=== PATIENT | female | born 2000 | race Caucasian/White ===

== ENCOUNTER 2023-02-17 07:57 | Emergency (ER) | payer BC, SELFPAY ==
[2023-02-17 08:03] VITALS: BP 118/98; PULSE 94; RESP 16; TEMP 36.8; O2SAT 98; BMI 20.8
[2023-02-17 08:06] VITALS: RESP 16
--- NOTE | 2023-02-17 08:20 | CT_ITS ---
[address] [address] Patient Name: HODAN NAVARRO MRN: [id number] date: 2000 Sex: F Assigned Patient Location: ER Current Patient Location: Accession/Order Number: [id number] Exam Date: 02/17/2023 09:05 Report Date: 02/17/2023 09:35 At the request of: ASHLEY ROCA Procedure: CT soft tissue neck w con EXAM: CT soft tissue neck w con; [id number] REASON FOR EXAM: throat pain, difficulty swallowing TECHNIQUE: Helical CT images of the neck obtained after the administration of IV contrast. Coronal and sagittal reconstructions were generated at the scanner. Dose reduction technique used: Automated exposure control and/or adjustment of the mA and/or kV according to patient size and/or use of iterative reconstruction technique. COMPARISON: None. FINDINGS: Visualized intracranial contents: Within normal limits. Orbits: Within normal limits. Sinuses: Small mucous retention cyst in the left maxillary sinus. No layering sinus fluid. Argon Tester space: Within normal limits. Buccal space: Within normal limits. Parotid space: No mass, stone, or acute inflammatory changes. Submandibular space: Within normal limits. Sublingual space: Within normal limits. Submental space: Within normal limits. Oral cavity: Within normal limits. Pharynx/Pharyngeal mucosal space: Within normal limits. Parapharyngeal space: Within normal limits. Retropharyngeal space: No abnormal thickening. Carotid space: Within normal limits. Perivertebral space: Within normal limits. Visceral space: -No thyroid nodules. Lymph nodes: No lymphadenopathy by size criteria. Superficial soft tissues of the neck: Within normal limits. Lung apices: Clear. Osseous: No acute osseous abnormality. No suspicious osseous lesion. IMPRESSION: Negative exam. No structural etiology for throat pain and difficulty swallowing demonstrated. Electronically authenticated by: ARLENE WOOD Date: 02/17/2023 09:35
--- NOTE | 2023-02-17 08:27 | ED.GENADUL1 ---
HPI - General Adult General Chief complaint: Upper Respiratory Infection Stated complaint: throat pain Time Seen by Provider: 02/17/23 08:07 Source: patient and family Mode of arrival: walk-in Limitations: no limitations History of Present Illness HPI narrative: patient developed throat pain 4 days ago. The pain has steadily worsened since then and has moved into the roof of her mouth and the top of the throat. No neck pain or lymph node swelling. No fever or chills. No GI or symptoms. She went to the urgent care yesterday and had a negative strep test - culture is pending. She does not know of any potential ill exposures but goes to school in [place]. She now presents crying and stating that it hurts to talk and swallow. She is able to control her secretions. Related Data Allergies Allergy/AdvReac Type Severity Reaction Status Date / Time No Known Drug Allergies Allergy Verified 02/17/23 08:02 [facility] Social History Smoking status: Never smoker Exam Narrative Exam Narrative: Nurses notes and vital signs reviewed and patient is not hypoxic. afebrile General: Well-appearing and in no apparent distress. Skin: Warm, dry, no pallor noted. No rash. Head: Normocephalic, atraumatic. Neck: Supple, non-tender. no cervical lymphadenopathy. No meningismus. Eye: Pupils are equal, round and EOMI. No scleral icterus. Ears, Nose, Mouth, and Throat: TMs are clear, no nasal mucosal hypertrophy. Oral mucosa is moist, uvula is mid-line, moderate posterior oropharynx erythema without ulcers or exudate. No oral or intraoral lesions. she is able to control her secretions. no trismus or drooling Cardiovascular: Regular Rate and Rhythm without murmur, gallop or rub. Respiratory: No accessory muscle use or respiratory distress. Lungs are clear to auscultation, no wheezing, rales or rhonchi GI: Abdomen is soft, non-distended. Normal bowel sounds. No splenomegaly. No tenderness to palpation. No rebound, guarding, or rigidity noted. Neurological: A&O x4. No cranial nerve dysfunction observed. No truncal ataxia. Moves all extremities. Sensation intact. Psychiatric: Cooperative and interactive. Normal mood and affect. Constitutional Vital Signs - 24 hr 02/17/23 08:03 02/17/23 08:06 Temperature 98.2 F Pulse Rate [Monitor] 94 H Respiratory Rate 16 16 Blood Pressure [Left Arm] 118/98 H Pulse Oximetry 98 Oxygen Delivery Method Room Air Course Vital Signs Vital signs: Vital Signs Temperature 98.2 F 02/17/23 08:03 Pulse Rate 94 H 02/17/23 08:03 Respiratory Rate 16 02/17/23 08:03 Blood Pressure 118/98 H 02/17/23 08:03 Pulse Oximetry 98 02/17/23 08:03 Oxygen Delivery Method Room Air 02/17/23 08:03 Temperature 98.2 F 02/17/23 08:03 Pulse Rate 94 H 02/17/23 08:03 Respiratory Rate 16 02/17/23 08:06 Blood Pressure 118/98 H 02/17/23 08:03 Pulse Oximetry 98 02/17/23 08:03 Oxygen Delivery Method Room Air 02/17/23 08:03 Medical Decision Making MDM Narrative Medical decision making narrative: swabs obtained for Covid and strep. Peripheral IV established and blood drawn for testing, including lactate, ESR and CRP. CT soft tissue with IV contrast ordered. She was given IV Toradol and oral magic mouthwash for the pain. Patient's workup was negative including all lab tests, swabs and CT scan. Patient informed of results, given reassurance and discharged home. She will continue to take the magic mouthwash, take tylenol and motrin for pain. ED return if she worsens. Lab Data Lab results reviewed: Yes I reviewed the patient's lab results Labs: Lab Results 02/17/23 02/17/23 Range/Units 08:26 08:30 WBC 6.6 (4.0-11.0) 10^3/uL RBC 5.08 (4.20-5.40) 10^6/uL Hgb 13.8 (12.0-16.0) g/dL Hct 42.5 (36.0-48.0) % MCV 83.7 (81.0-99.0) fL MCH 27.2 (26.7-34.0) pg MCHC 32.5 (29.9-35.2) g/dL RDW 13.8 (11.0-15.0) % Plt Count 303 (150-450) 10^3/uL MPV 9.7 (9.5-13.5) fL Neut % (Auto) 60.5 (43.0-75.0) % Lymph % (Auto) 29.8 (20.5-60.0) % [place] % (Auto) 6.0 (1.7-12.0) % Eos % (Auto) 2.7 (0.9-7.0) % Baso % (Auto) 0.8 (0.2-2.0) % Neut # (Auto) 4.0 (1.4-6.5) 10^3/uL Lymph # (Auto) 2.0 (1.2-3.8) 10^3/uL [place] # (Auto) 0.4 (0.3-0.8) 10^3/uL Eos # (Auto) 0.2 (0.0-0.7) 10^3/uL Baso # (Auto) 0.1 (0.0-0.1) 10^3/uL Abs Immat Gran (auto) 0.01 (0.00-0.03) 10^3/uL Imm/Tot Granulo (auto) 0.2 (0.0-0.5) % ESR 12 (<=20) mm/hr Sodium 138 (136-145) mmol/L Potassium 3.2 L (3.5-5.1) mmol/L Chloride 101 (98-107) mmol/L Carbon Dioxide 28.1 (21.0-32.0) mmol/L Anion Gap 12.1 BUN 6.0 L (7.0-18.0) mg/dL Creatinine 0.62 (0.55-1.02) mg/dL Est GFR ( Amer) >60 (>=60) Est GFR (Non-Af Amer) >60 (>=60) BUN/Creatinine Ratio 9.7 Glucose 92 (74-106) mg/dL Lactate 0.8 (0.4-2.0) mmol/L Calcium 8.9 (8.5-10.1) mg/dL C-Reactive Protein <0.2 (<=1.0) mg/dL SARS-CoV-2 (PCR) Negative (NEGATIVE) Monoscreen Negative (NEGATIVE) Streptococcus Screen Negative Imaging Data ct soft tissue neck: Radiologist's impression: Patient Name: HODAN ANVARRO MRN: [facility]:[id number] date: 2000 Sex: F Assigned Patient Location: ER Current Patient Location: ER Accession/Order Number: [id number] Exam Date: 02/17/2023 09:05 Report Date: 02/17/2023 09:35 At the request of: ASHLEY ROCA Procedure: CT soft tissue neck w con EXAM: CT soft tissue neck w con; [id number] REASON FOR EXAM: throat pain, difficulty swallowing TECHNIQUE: Helical CT images of the neck obtained after the administration of IV contrast. Coronal and sagittal reconstructions were generated at the scanner. Dose reduction technique used: Automated exposure control and/or adjustment of the mA and/or kV according to patient size and/or use of iterative reconstruction technique. COMPARISON: None. FINDINGS: Visualized intracranial contents: Within normal limits. Orbits: Within normal limits. Sinuses: Small mucous retention cyst in the left maxillary sinus. No layering sinus fluid. Executive Sales Manager space: Within normal limits. Buccal space: Within normal limits. Parotid space: No mass, stone, or acute inflammatory changes. Submandibular space: Within normal limits. Sublingual space: Within normal limits. Submental space: Within normal limits. Oral cavity: Within normal limits. Pharynx/Pharyngeal mucosal space: Within normal limits. Parapharyngeal space: Within normal limits. Retropharyngeal space: No abnormal thickening. Carotid space: Within normal limits. Perivertebral space: Within normal limits. Visceral space: -No thyroid nodules. Lymph nodes: No lymphadenopathy by size criteria. Superficial soft tissues of the neck: Within normal limits. Lung apices: Clear. Osseous: No acute osseous abnormality. No suspicious osseous lesion. IMPRESSION: Negative exam. No structural etiology for throat pain and difficulty swallowing demonstrated. Electronically authenticated by: ARLENE WOOD Date: 02/17/2023 09:35 Discharge Plan Discharge Chief Complaint: Upper Respiratory Infection Clinical Impression: Pharyngitis Patient Disposition: Home, Self-Care Time of Disposition Decision: 10:03 Instructions: Pharyngitis (ED) Stand Alone Forms: Portal Instructions Referrals: Ilia Amato DO [Primary Care Provider] - 1 week
[2023-02-17 08:44] LABS: Basophils Absolute Auto 0.1 10^3/uL (0.0-0.1); Basophils Percent Auto 0.8 % (0.2-2.0); Eosinophils Absolute Auto 0.2 10^3/uL (0.0-0.7); Eosinophils Percent Auto 2.7 % (0.9-7.0); Hematocrit 42.5 % (36.0-48.0); Hemoglobin 13.8 g/dL (12.0-16.0); Immature Granulocytes Abs Auto 0.01 10^3/uL (0.00-0.03); Immature Granulocytes Pct Auto 0.2 % (0.0-0.5); Lymphocytes Percent Auto 29.8 % (20.5-60.0); Mean Corpuscular HGB Conc 32.5 g/dL (29.9-35.2); Mean Corpuscular Hemoglobin 27.2 pg (26.7-34.0); Mean Corpuscular Volume 83.7 fL (81.0-99.0); Mean Platelet Volume 9.7 fL (9.5-13.5); Monocytes Absolute Auto 0.4 10^3/uL (0.3-0.8); Neutrophils Percent Auto 60.5 % (43.0-75.0); Platelet Count 303 10^3/uL (150-450); Red Blood Count 5.08 10^6/uL (4.20-5.40); Red Cell Distribution Width 13.8 % (11.0-15.0); White Blood Count 6.6 10^3/uL (4.0-11.0)
[2023-02-17] MEDS: KETOROLAC TROMETHAMINE 30 MG/ML VIAL IVP (08:46)
[2023-02-17] MEDS: lidocaine HCL 15 ML, MAG HYDROX/ALUMINUM HYD/SIMETH 30 ML, diphenhydrAMINE HCL 30 MG PO (08:46)
[2023-02-17 08:50] LABS: C Reactive Protein <0.2 mg/dL (<=1.0)
[2023-02-17 08:50] LABS: Internal Control Within Normal Limits; Strep A Antigen Screen Negative
[2023-02-17] MEDS: lidocaine HCL 15 ML, MAG HYDROX/ALUMINUM HYD/SIMETH 30 ML, diphenhydrAMINE HCL 75 MG PO (08:54)
[2023-02-17 08:59] LABS: Lactate/Lactic Acid 0.8 mmol/L (0.4-2.0)
[2023-02-17 09:01] LABS: Mono Screen NEGATIVE (NEGATIVE)
[2023-02-17 09:02] LABS: Anion Gap 12.1; BUN Creatinine Ratio 9.7; Calcium 8.9 mg/dL (8.5-10.1); Carbon Dioxide 28.1 mmol/L (21.0-32.0); Chloride 101 mmol/L (98-107); Estimated GFR (African America >60 (>=60); Estimated GFR (Non-African Ame >60 (>=60); Glucose 92 mg/dL (74-106); Potassium 3.2 mmol/L (3.5-5.1); Sodium 138 mmol/L (136-145)
[2023-02-17 09:55] LABS: Erythrocyte Sedimentation Rate 12 mm/hr (<=20)
[2023-02-17 09:59] LABS: SARS-CoV-2 Ag NEGATIVE (NEGATIVE)
[2023-02-17 14:26] LABS: SARS-CoV-2 NAA NOT DETECTED (NOT DETECTE)
== END 2023-02-17 10:21 | disposition home or self-care (01) ==
PROVIDERS: Emergency Provider Emergency Medicine; PCP Internal Medicine
DX: J02.9 Acute pharyngitis, unspecified (principal)
CPT/HCPCS: 36415; 70491; 80048; 83605; 85025; 85652; 86140; 86308; 87070; 87635; 87880; 96374; 99285; Q9967

== ENCOUNTER 2023-02-19 08:00 | Emergency (ER) | payer BC, SELFPAY ==
[2023-02-19 08:03] VITALS: BP 142/90; PULSE 92; RESP 16; TEMP 36.7; O2SAT 96; BMI 21.5
--- NOTE | 2023-02-19 08:26 | ED.GENADUL1 ---
HPI - General Adult General Chief complaint: Upper Respiratory Infection Stated complaint: SORE THROAT Time Seen by Provider: 02/19/23 08:02 Source: patient Mode of arrival: walk-in Limitations: no limitations History of Present Illness HPI narrative: 22-year-old female presents for sore throat. She's had it for over a week. She was seen at an urgent care and had negative strep testing. She was seen in this emergency department two days ago and had a negative CT. She continues to have bilateral throat pain. No fever. No cough or shortness of breath or chest pain. The pain has been severe and and she's been tearful. Related Data Previous Rx's Medication Instructions Recorded acetaminophen 120 mg-codeine 12 10 ml PO Q6H PRN pain #400 mL 02/19/23 mg/5 mL (5 mL) oral solution valacyclovir 1 gram tablet 1,000 mg PO BID 10 days #20 tabs 02/19/23 (Valtrex) Allergies Allergy/AdvReac Type Severity Reaction Status Date / Time No Known Drug Allergies Allergy Verified 02/17/23 08:02 Review of Systems ROS Narrative A ten point review of systems is negative except as noted above. PFSH PFS Social History Smoking status: Never smoker Exam Narrative Exam Narrative: Nurses note and vital signs reviewed and patient is not hypoxic. General: The patient appears uncomfortable and in no apparent distress. Skin: Warm, dry, no pallor noted. There is no rash noted. Head: Normocephalic, atraumatic Eye: Normal conjunctiva, no drainage Ears, Nose, Mouth, and Throat: oral mucosa is moist. Nares patent. Mouth without vesicles. Ear canals patent. Tm's without Erythema. there is a U-shaped area of erythema at the junction of the hard and soft palates. There are no blisters present. No swelling below her tongue. No buccal mucosal lesions. uvula is midline. Cardiovascular: Regular Rate and Rhythm Respiratory: Patient is in no distress, no accessory muscle use, lungs are clear to auscultation, no wheezing, rales or rhonchi Back: non-tender, no CVA tenderness bilaterally to percussion. GI: soft and nontender Musculoskeletal: The patient has no evidence of calf tenderness, no pitting edema, symmetrical pulses noted bilaterally Neurological: A&O x4, normal speech Psychiatric: Cooperative Constitutional Vital Signs, click to edit/add: Last Vital Signs Temp 98.0 F 02/19/23 08:03 Pulse 92 H 02/19/23 08:03 Resp 16 02/19/23 08:03 BP 142/90 H 02/19/23 08:03 Pulse Ox 96 02/19/23 08:03 O2 Del Method Room Air 02/19/23 08:03 Course Vital Signs Vital signs: Vital Signs Temperature 98.0 F 02/19/23 08:03 Pulse Rate 92 H 02/19/23 08:03 Respiratory Rate 16 02/19/23 08:03 Blood Pressure 142/90 H 02/19/23 08:03 Pulse Oximetry 96 02/19/23 08:03 Oxygen Delivery Method Room Air 02/19/23 08:03 Temperature 98.0 F 02/19/23 08:03 Pulse Rate 92 H 02/19/23 08:03 Respiratory Rate 16 02/19/23 08:03 Blood Pressure 142/90 H 02/19/23 08:03 Pulse Oximetry 96 02/19/23 08:03 Oxygen Delivery Method Room Air 02/19/23 08:03 Medical Decision Making MDM Narrative Medical decision making narrative: Blood work is unchanged. Viral culture is ordered as well as a coxsackie antibody test. She'll be placed on Valtrex and Tylenol with Codeine elixir. Findings are discussed with the patient and her mother. she had testing that was negative for strep and mono. I have no clinical suspicion of abscess. Differential Diagnosis Differential Diagnosis: viral pharyngitis, strep throat, mono Lab Data Lab results reviewed: Yes I reviewed the patient's lab results Labs: Lab Results 02/19/23 Range/Units 08:45 WBC 5.3 (4.0-11.0) 10^3/uL RBC 4.73 (4.20-5.40) 10^6/uL Hgb 12.9 (12.0-16.0) g/dL Hct 40.0 (36.0-48.0) % MCV 84.6 (81.0-99.0) fL MCH 27.3 (26.7-34.0) pg MCHC 32.3 (29.9-35.2) g/dL RDW 13.8 (11.0-15.0) % Plt Count 278 (150-450) 10^3/uL MPV 9.7 (9.5-13.5) fL Neut % (Auto) 59.1 (43.0-75.0) % Lymph % (Auto) 28.3 (20.5-60.0) % [place] % (Auto) 7.9 (1.7-12.0) % Eos % (Auto) 4.1 (0.9-7.0) % Baso % (Auto) 0.6 (0.2-2.0) % Neut # (Auto) 3.2 (1.4-6.5) 10^3/uL Lymph # (Auto) 1.5 (1.2-3.8) 10^3/uL [place] # (Auto) 0.4 (0.3-0.8) 10^3/uL Eos # (Auto) 0.2 (0.0-0.7) 10^3/uL Baso # (Auto) 0.0 (0.0-0.1) 10^3/uL Abs Immat Gran (auto) 0.00 (0.00-0.03) 10^3/uL Imm/Tot Granulo (auto) 0.0 (0.0-0.5) % Sodium 139 (136-145) mmol/L Potassium 3.4 L (3.5-5.1) mmol/L Chloride 105 (98-107) mmol/L Carbon Dioxide 28.2 (21.0-32.0) mmol/L Anion Gap 9.2 BUN 4.0 L (7.0-18.0) mg/dL Creatinine 0.71 (0.55-1.02) mg/dL Est GFR ( Amer) >60 (>=60) Est GFR (Non-Af Amer) >60 (>=60) BUN/Creatinine Ratio 5.6 Glucose 119 H (74-106) mg/dL Calcium 8.3 L (8.5-10.1) mg/dL Discharge Plan Discharge Chief Complaint: Upper Respiratory Infection Clinical Impression: Acute viral pharyngitis Patient Disposition: Home, Self-Care Time of Disposition Decision: 09:38 Condition: Good Mode of Transportation: Private Vehicle Prescriptions / Home Meds: New valacyclovir [Valtrex] 1 gram tablet 1,000 mg PO BID 10 Days Qty: 20 0RF acetaminophen-codeine 120 mg-12 mg /5 mL (5 mL) solution 10 ml PO Q6H PRN (Reason: pain) Qty: 400 0RF Instructions: Pharyngitis (ED) Stand Alone Forms: Portal Instructions Referrals: Ilia Amato DO [Primary Care Provider] - 1 week
[2023-02-19] MEDS: METHYLPREDNISOLONE SOD SUCC PF 125 MG/2 ML VIAL IVP (08:47)
[2023-02-19] MEDS: 0.9 % SODIUM CHLORIDE 1,000 ML 1000 ML IV (08:47)
[2023-02-19] MEDS: KETOROLAC TROMETHAMINE 30 MG/ML VIAL IVP (08:47)
[2023-02-19 09:10] LABS: Basophils Percent Auto 0.6 % (0.2-2.0); Eosinophils Absolute Auto 0.2 10^3/uL (0.0-0.7); Eosinophils Percent Auto 4.1 % (0.9-7.0); Hemoglobin 12.9 g/dL (12.0-16.0); Lymphocytes Absolute Auto 1.5 10^3/uL (1.2-3.8); Lymphocytes Percent Auto 28.3 % (20.5-60.0); Mean Corpuscular HGB Conc 32.3 g/dL (29.9-35.2); Mean Corpuscular Hemoglobin 27.3 pg (26.7-34.0); Mean Corpuscular Volume 84.6 fL (81.0-99.0); Mean Platelet Volume 9.7 fL (9.5-13.5); Monocytes Absolute Auto 0.4 10^3/uL (0.3-0.8); Monocytes Percent Auto 7.9 % (1.7-12.0); Neutrophils Absolute Auto 3.2 10^3/uL (1.4-6.5); Neutrophils Percent Auto 59.1 % (43.0-75.0); Platelet Count 278 10^3/uL (150-450); Red Blood Count 4.73 10^6/uL (4.20-5.40); Red Cell Distribution Width 13.8 % (11.0-15.0); White Blood Count 5.3 10^3/uL (4.0-11.0)
[2023-02-19 09:15] LABS: Anion Gap 9.2; BUN Creatinine Ratio 5.6; Calcium 8.3 mg/dL (8.5-10.1); Carbon Dioxide 28.2 mmol/L (21.0-32.0); Chloride 105 mmol/L (98-107); Estimated GFR (African America >60 (>=60); Estimated GFR (Non-African Ame >60 (>=60); Glucose 119 mg/dL (74-106); Potassium 3.4 mmol/L (3.5-5.1); Sodium 139 mmol/L (136-145)
[2023-02-22 22:07] LABS: Coxsackie B-1 Ab 1:32 (Neg:<1:8); Coxsackie B-2 Ab 1:32 (Neg:<1:8); Coxsackie B-3 Ab 1:16 (Neg:<1:8); Coxsackie B-5 Ab 1:32 (Neg:<1:8); Coxsackie B-6 Ab 1:32 (Neg:<1:8)
== END 2023-02-19 09:54 | disposition home or self-care (01) ==
PROVIDERS: Emergency Provider Emergency Medicine; PCP Internal Medicine
DX: J02.9 Acute pharyngitis, unspecified (principal)
CPT/HCPCS: 36415; 80048; 85025; 86658; 87255; 96374; 96375; 99284; J2930

== ENCOUNTER 2024-03-18 07:29 | Outpatient (OUT) | payer BC, SELFPAY ==
--- NOTE | 2024-03-18 | XR_ITS ---
[address] [address] Patient Name: HODAN NAVARRO MRN: [id number] date: 2000 Sex: F Assigned Patient Location: Current Patient Location: Accession/Order Number: [id number] Exam Date: 03/18/2024 07:35 Report Date: 03/19/2024 10:33 At the request of: DELLA TOM Procedure: XR knee LT 4V PROCEDURE: XR knee LT 4V HISTORY: LEFT KNEE PAIN COMPARISON: None. FINDINGS: BONES:No fracture, acute abnormality, or significant arthropathy. SOFT TISSUES:No visible soft tissue swelling. EFFUSION:Small joint effusion. OTHER: Negative. XR/XR knee LT 4V IMPRESSION: 1. Small joint effusion. 2. No acute bone abnormality. Electronically authenticated by: DELLA WILLIAM Date: 03/19/2024 10:33
== END 2024-03-18 07:30 | disposition home or self-care (01) ==
LOC: EC 07:29
PROVIDERS: PCP Internal Medicine; Visit Provider Orthopaedic Surgery
DX: M25.562 Pain in left knee (principal); M25.462 Effusion, left knee
CPT/HCPCS: 73564

== ENCOUNTER 2024-03-26 13:16 | Outpatient (OUT) | payer BC, SELFPAY ==
--- NOTE | 2024-03-26 13:18 | MR_ITS ---
[place] [id number] Patient Name: HODAN NAVARRO MRN: [id number] date: 2000 Sex: F Assigned Patient Location: MRI Current Patient Location: MRI Accession/Order Number: [id number] Exam Date: 03/26/2024 13:25 Report Date: 03/28/2024 11:54 At the request of: DELLA TOM Procedure: MR knee LT wo con EXAMINATION: MR knee LT wo con HISTORY: Acute Pain Of Left Knee M25.562 COMPARISON: No relevant comparison available. TECHNIQUE: A complete multi-planar MRI was performed. FINDINGS: MEDIAL COMPARTMENT MEDIAL MENISCUS: Suspect superior surface tear involving posterior junction and horn. CARTILAGE: Small focal defects suspected along lateral weightbearing surface of the medial condyle. BONES: Prominent subchondral edema within medial condyle adjacent the weightbearing surface. MCL AND MEDIAL CAPSULE: Normal medial collateral ligament and medial capsule. LATERAL COMPARTMENT LATERAL MENISCUS: No visible tear or significant degeneration. CARTILAGE: No visible defect. BONES: 12 mm area of slight irregularity and abnormal signal involving the subcortical trabecula adjacent the weightbearing surface of the lateral condyle; mild impaction fracture versus developing osteochondral defect. Prominent edema surrounding this area within the lateral condyle extending to the intercondylar notch. Edema within the marrow cavity adjacent the posterior lateral tibial plateau and adjacent the tibia-fibula joint. LCL/POSTEROLAT COMPLEX: Normal lateral collateral ligament, fascicles, lateral capsule and ligaments. ANTERIOR COMPARTMENT PATELLA: No marrow pathology, fracture, or significant arthropathy. CARTILAGE: No visible defect. TENDONS: Normal. EFFUSION: None. No synovitis or loose bodies. ACL: Disrupted. PCL: Normal appearing ligament. MENISCOFEMORAL: Normal meniscofemoral ligaments. OTHER: Negative. MR/MR knee LT wo con IMPRESSION: 1. Disruption of the anterior cruciate ligament. 2. Bone bruising involving the lateral femoral condyle and lateral tibial plateau. Possible developing osteochondral defect within lateral femoral condyle versus area of slightly greater trabecular fractures. 3. Small cartilage defect along weightbearing surface of medial femoral condyle with underlying subchondral edema. 4. Intrasubstance degeneration versus medial meniscus superior surface tear involving the posterior horn and junction. Electronically authenticated by: DELLA WILLIAM Date: 03/28/2024 11:54
== END 2024-03-26 13:17 | disposition home or self-care (01) ==
LOC: MRI 13:16
PROVIDERS: PCP Internal Medicine; Visit Provider Orthopaedic Surgery
DX: M25.562 Pain in left knee (principal); S83.512A Sprain of anterior cruciate ligament of left knee, initial encounter
CPT/HCPCS: 73721

== ENCOUNTER 2024-04-19 08:00 | Outpatient (OUT) | payer BC, SELFPAY ==
--- OUTSIDE RECORDS SUMMARY | 2024-04-19 10:16 | XMS_ITS | CCD ---
Author Organization [facility] ion [facility] Care Team Providers Care Certified Green Building Engineer Name Role Phone JULIANO, DR YOGI Newman Attending Unavailable JULIANO, DR YOGI Newman Consulting Unavailable JULIANO, DR YOGI Newman Admitting Unavailable ALMANZA, DR ROSANA Huertas Primary Care Unavailable Unavailable Primary Care Provider UnavailEDER Dotson Attending Unavailable PROVIDER, UNKNOWN Admitting Unavailable PROVIDER, UNKNOWN Admitting Unavailable PROVIDER, UNKNOWN Attending Unavailable Medications Completed/Discontinued Medications Medication Drug Class(es) Dates Sig (Normalized) Sig (Original) calcium chloride 0.0014 meq/ml / potassium chloride 0.004 meq/ml / sodium chloride 0.103 meq/ml / sodium lactate 0.028 meq/ml injectable solution (1 source) Start: 04-17-2024 End: 04-17-2024 take 1 dose intravenously every hour 1,000 mL, at 9,999 mL/hr, Intravenous, FLUID BOLUS, 1 dose, On Mon04/17/24 at 0126 50 ml magnesium sulfate 40 mg/ml injection (1 source) Start: 04-17-2024 End: 04-17-2024 2 g (2,000 mg), Intravenous, ONCE, 1 dose, On Mon04/17/24 at 0241 Problems Problem Classification Problem Date Documented Da te Episodic/Chronic Conditions associated with dizziness or vertigo (1 source) Lightheadedness; Translations: [Dizziness and giddiness] 04-17-2024 Episodic Syncope (1 source) Near syncope; Translations: [Syncope and collapse] 04-17-2024 Episodic Results Test Name Value Interpretation Reference Range Facility BASIC METABOLIC PANELon Anion gap [Moles/Vol] 14 mmol/L Normal 10-20 [facility] Comment on above: Performed By: #### C H8, MG #### [facility] [address] [place] [address], [id number] Calcium [Mass/Vol] 9.4 mg/dL Normal 8.6-10.3 [facility] Comment on above: Performed By: #### C H8, MG #### [facility] [address], [place], Chloride [Moles/Vol] 102 mmol/L Normal 98-107 [facility] Comment on above: Performed By: #### C H8, MG #### [facility] [address], [place], CO2 [Moles/Vol] 29 mmol/L Normal 21-31 [facility] Comment on above: Performed By: #### C H8, MG #### [facility] [address], [place], Creatinine [Mass/Vol] 0.78 mg/dL Normal 0.60-1.20 [facility] Comment on above: Performed By: #### C H8, MG #### [facility] [address], [place], ESTIMATED GFR (CKD-EPI) 110 mL/min/1.73sqm Normal >=60 [facility] Comment on above: Result Comment: 2020 CKD EPI Equation using Creatinine without Race Comment: Estimated glomerular filtration rate (eGFR) is calculated without a race coefficient. Values should be interpreted in the context of the patient's full clinical presentation. Reference: 1. Alberto C, Lani M, Montserrat DAVIES, et al.. A Unifying Approach for GFR Estimation: Recommendations of the NKF-ASN Task Force on Reassessing the Inclusion of Race in Diagnosing Kidney Disease. [place] Journal of Kidney Diseases 2021;79(2):268-88.e1. 2. N Engl J Med 2020 Vol. 385 Issue 19 Pages 8520-4975 Performed By: #### C H8, MG #### [facility] [address], [place], Glucose [Mass/Vol] 91 mg/dL Normal 74-109 [facility] Comment on above: Performed By: #### C H8, MG #### [facility] [address], [place], Potassium [Moles/Vol] 3.5 mmol/L Normal 3.5-5.0 [facility] Comment on above: Performed By: #### C H8, MG #### [facility] [address], [place], Sodium [Moles/Vol] 141 mmol/L Normal 136-145 [facility] Comment on above: Performed By: #### C H8, MG #### [facility] [address], [place], Urea nitrogen [Mass/Vol] 8 mg/dL Normal 7-25 [facility] Comment on above: Performed By: #### C H8, MG #### [facility] [address], [place], Basic metabolic 2000 panelon 04-17-2024 Anion gap [Moles/Vol] 14 mmol/L 10 - 20 [facility] Calcium [Mass/Vol] 9.4 mg/dL 8.6 - 10. 3 mg/dL [facility] Chloride [Moles/Vol] 102 mmol/L 98 - 10 7 mmol/L [facility] CO2 [Moles/Vol] 29 mmol/L 21 - 31 mmol/L [facility] Creatinine [Mass/Vol] 0.78 mg/dL 0.60 - 1.20 mg/dL [facility] GFR/1.73 sq M.predicted CKD-EPI (S/P/Bld) [Vol rate/Area] 110 - PINF [facility] Comment on above: 2020 CKD EPI Equatio n using Creatinine without Race Comment: Estimated glomerular filtration rate (eGFR) is calculated without a race coefficient. Values should be interpreted in the context of the patient's full clinical presentation. Reference: 1. Alberto C, Lani M, Montserrat DAVIES, et al.. A Unifying Approach for GFR Estimation: Recommendations of the NKF-ASN Task Force on Reassessing the Inclusion of Race in Diagnosing Kidney Disease. [place] Journal of Kidney Diseases 202;79(2):268-88.e1. 2. N Engl J Med 2020 Vol. 385 Issue 19 Pages 5981-8589 Glucose [Mass/Vol] 91 mg/dL 74 - 109 mg/dL [facility] Interpretation and review of laboratory results Normal [facility] Potassium [Moles/Vol] 3.5 mmol/L 3.5 - 5.0 mmol/L [facility] Sodium [Moles/Vol] 141 mmol/L 136 - 145 mmol/L [facility] Urea nitrogen [Mass/Vol] 8 mg/dL 7 - 25 mg/dL [facility] CBC WITH DIFFERENTIALon Basophils (Bld) [#/Vol] 0.08 10*3/uL 0.00 - 0.20 K/uL [facility] Basophils/100 WBC (Bld) 1.3 % NINF - 1.9 % [facility] Eosinophils (Bld) [#/Vol] 0.10 10*3/uL 0.00 - 0.70 K/uL [facility] Eosinophils/100 WBC (Bld) 1.5 % 0.1 - 4.0 % [facility] Erythrocyte distribution width (RBC) [Ratio] 16.6 % High 11.5 - 14.5 % [facility] Hematocrit (Bld) [Volume fraction] 39.6 % 36.0 - 46.0 % [facility] Hemoglobin (Bld) [Mass/Vol] 12.9 g/dL 12.0 - 15.0 g/dL [facility] Interpretation and review of laboratory results Abnormal [facility] Lymphocytes (Bld) [#/Vol] 1.52 10*3/uL 1.00 - 4.80 K/uL [facility] Lymphocytes/100 WBC (Bld) 24.3 % 24.0 - 44.0 % [facility] MCH (RBC) [Entitic mass] 27.5 pg 26.0 - 34.0 pg [facility] MCHC (RBC) [Mass/Vol] 32.7 g/dL 32.0 - 35.9 g/dL [facility] MCV (RBC) [Entitic vol] 84 fL 80 - 100 fL [facility] Monocyte distribution width Auto (Bld) [Entitic vol] 16 NINF - 20 [facility] Monocytes (Bld) [#/Vol] 0.56 10*3/uL 0.20 - 1.00 K/uL [facility] Monocytes/100 WBC (Bld) 9.0 % 2.0 - 11.0 % [facility] Neutrophils (Bld) [#/Vol] 3.99 10*3/uL 1.50 - 8.00 K/uL [facility] Neutrophils/100 WBC (Bld) 64.0 % 31.0 - 76.0 % [facility] Platelet mean volume (Bld) [Entitic vol] 7.8 fL 7.5 - 11.2 fL [facility] Platelets (Bld) [#/Vol] 275 10*3/uL 150 - 400 K/uL [facility] RBC (Bld) [#/Vol] 4.71 10*6/uL [facility] WBC (Bld) [#/Vol] 6.2 10*3/uL 4.5 - 11.5 K/uL [facility] Basophils (Bld) [#/Vol] 0.08 10*3/uL Normal 0.00-0.20 [facility] Comment on above: Performed By: #### C BCDSAT #### [facility] [address] [place] [address], Basophils/100 WBC (Bld) 1.3 % Normal <=1.9 [facility] Comment on above: Performed By: #### C BCDSAT #### [facility] [address] [place] [address], Eosinophils (Bld) [#/Vol] 0.10 10*3/uL Normal 0.00-0.70 [facility] Comment on above: Performed By: #### C BCDSAT #### [facility] [address] [place] [address], Eosinophils/100 WBC (Bld) 1.5 % Normal 0.1-4.0 [facility] Comment on above: Performed By: #### C BCDSAT #### [facility] [address] [place] [address], Erythrocyte distribution width (RBC) [Ratio] 16.6 % High 11.5-14.5 [facility] Comment on above: Performed By: #### C BCDSAT #### [facility] [address] [place] [address], Hematocrit (Bld) [Volume fraction] 39.6 % Normal 36.0-46.[address] [facility] Comment on above: Performed By: #### C BCDSAT #### [facility] [address] [place] [address], Hemoglobin (Bld) [Mass/Vol] 12.9 g/dL Normal 12.0-15.0 [facility] Comment on above: Performed By: #### C LUIS EDUARDOAT #### [facility] [address] [place] [address], Lymphocytes (Bld) [#/Vol] 1.52 10*3/uL Normal 1.00-4.80 [facility] Comment on above: Performed By: #### C LUIS EDUARDOAT #### [facility] [address] [place] [address], Lymphocytes/100 WBC (Bld) 24.3 % Normal 24.0-44.0 [facility] Comment on above: Performed By: #### Kailyn HOFFAT #### [facility] [address] [place] [address], MCH (RBC) [Entitic mass] 27.5 pg Normal 26.0-34.0 [facility] Comment on above: Performed By: #### Kailyn HOFFAT #### [facility] [address] [place] [address], MCHC (RBC) [Mass/Vol] 32.7 g/dL Normal 32.0-35.9 [facility] Comment on above: Performed By: #### Kailyn HOFFAT #### [facility] [address] [place] [address], MCV (RBC) [Entitic vol] 84 fL Normal 80-100 [facility] Comment on above: Performed By: #### Kailyn HOFFAT #### [facility] [address] [place] [address], MONOCYTE DISTRIBUTION WIDTH 16 Normal <=20 [facility] Comment on above: Performed By: #### Kailyn HOFFAT #### [facility] [address] [place] [address], Monocytes (Bld) [#/Vol] 0.56 10*3/uL Normal 0.20-1.00 [facility] Comment on above: Performed By: #### Kailyn HOFFAT #### [facility] [address] [place] [address], Monocytes/100 WBC (Bld) 9.0 % Normal 2.0-11.0 [facility] Comment on above: Performed By: #### C TIMBODSAT #### [facility] [address], [place], Neutrophils (Bld) [#/Vol] 3.99 10*3/uL Normal 1.50-8.00 [facility] Comment on above: Performed By: #### C LUIS EDUARDOAT #### [facility] [address], [place], Neutrophils/100 WBC (Bld) 64.0 % Normal 31.0-76.0 [facility] Comment on above: Performed By: #### C LUIS EDUARDOAT #### [facility] [address] [place] [address], Platelet mean volume (Bld) [Entitic vol] 7.8 fL Normal 7.5-11.[address] [facility] Comment on above: Performed By: #### C LUIS EDUARDOAT #### [facility] [address], [place], Platelets (Bld) [#/Vol] 275 10*3/uL Normal 150-400 [facility] Comment on above: Performed By: #### C LUIS EDUARDOAT #### [facility] [address], [place], RBC (Bld) [#/Vol] 4.71 10*6/uL Normal 4.00-5.20 [facility] Comment on above: Performed By: #### C LUIS EDUARDOAT #### [facility] [address], [place], WBC (Bld) [#/Vol] 6.2 10*3/uL Normal 4.5-11.5 [facility] Comment on above: Performed By: #### C BCWINDYAT #### [facility] [address], [place], CT HEAD W/O CONTRASTon 04-17 CT HEAD W/O CONTRAST EXAMINATION: CT HEA D W/O CONTRAST 04/17/2024 12:55 AM CLINICAL HISTORY: dizziness COMPARISON: None TECHNIQUE: Thin axial imaging of the head was performed without intravenous contrast. FINDINGS: No mass or acute hemorrhage. No evidence of acute infarct. The ventricles are within normal limits for age. The skull, paranasal sinuses and tympanomastoid cavities are normal. IMPRESSION: No acute intracranial abnormality. MACRO: None Normal [facility] WO contrastOrdered B y: Richie Adam on 04-17-2024 CT DLP 1151.86 (mGycm) [facility] th Work Phone: CT Series Head,Head,Head [facility] h Work Phone: CTDI VOL 71.99 (mGy) [facility] Work Phone: PHANTOM TYPE IEC Head Dosimetry Phantom [facility] Work Phone: [facility] Work Phone: CT Head WO contraston 2023 EXAMINATION: CT HEAD W/O CONTRAST 04/17/2024 12:55 AM CLINICAL HISTORY: dizziness COMPARISON: None TECHNIQUE: Thin axial imaging of the head was performed without intravenous contrast. FINDINGS: No mass or acute hemorrhage. No evidence of acute infarct. The ventricles are within normal limits for age. The skull, paranasal sinuses and tympanomastoid cavities are normal. IMPRESSION: No acute intracranial abnormality. MACRO: None RADIOLOGY Richie Adam MD - 04/17/2024 EXAMINATION: CT HEAD W/O CONTRAST 04/17/2024 12:55 AM CLINICAL HISTORY: dizziness COMPARISON: None TECHNIQUE: Thin axial imaging of the head was performed without intravenous contrast. FINDINGS: No mass or acute hemorrhage. No evidence of acute infarct. The ventricles are within normal limits for age. The skull, paranasal sinuses and tympanomastoid cavities are normal. IMPRESSION: No acute intracranial abnormality. MACRO: None [facility] Radiology Study observation (narrative) [facility] ED Provider Noteson 04-17-20 [employer] Authentication Interface Message Text EMERGENCY DEPARTMENT NOTE Chief Complaint Patient presents with Dizziness Pt complains of dizziness and confusion x 1 day, pt denies drug/alcohol, denies new medications, denies chest pain or shortness of breath, denies flu like symptoms HPI: Derick Pereira is a 23 year old female presents to the emergency department with transient episode of lightheadedness/conf usion. 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 She reports that she had to sit down during this time as she felt as though she was going to pass out. She felt a flushed/warmth sensation which subsided after a period of 30 seconds. She then continued with her night and experienced a 2nd episode which again lasted approximately 30 seconds and spontaneously resolved. During both episodes, patient states that she was not in the kitchen/exposed to noxious fumes. She endorses no drug or alcohol use earlier in the day. She otherwise reports no clinical abnormalities in the days preceding today's event and has been in her normal state of health. She reports no recent head strike or falls.States that she was not started any new medication recently. She endorsesno sick contacts. On arrival to the emergency department, patient in noacute distress and reports that she was currently asymptomatic. States that she was never experienced episodes like this in the past. She endorses no personal or family history of cardiovascular disease/neurologic disease/DVT or PE. No past medical history on file. No past surgical history on file. PHYSICAL EXAM: Vitals Recorded in This Encounter 04/16/2024 2347 04/17/2024 0442 BP: 122/78 117/69 Pulse: 78 75 Resp: 16 15 Temp: 98.4 ???F (36.9 ???C) -- Temp src: Oral -- SpO2: 98 % 100 % Pain Score: 0 -- Physical Exam HENT: Head: Atraumatic. Mouth/Throat: Mouth: Mucous membranes are moist. Pharynx: Oropharynx is clear. Eyes: General: No visual field deficit. Cardiovascular: Rate and Rhythm: Normal rate and regular rhythm. Pulses: Normal pulses. Heart sounds: Normal heart sounds. Pulmonary/Chest/Maryam st: Effort normal and breath sounds normal. Abdominal: Palpations: Abdomen is soft. Tenderness: There is no guarding or rebound. Neurological: General: No focal deficit present. Mental Status: She is alert and oriented to person, place, and time. Mental status is at baseline. GCS: GCS eye subscore is 4. GCS verbal subscore is 5. GCS motor subscore is 6. Cranial Nerves: No cranial nerve deficit, dysarthria or facial asymmetry. Sensory: Sensation is intact. Motor: Motor function is intact. No pronator drift. Coordination: Coordination normal. Gait: Gait is intact. Skin: General: Skin is warm and dry. Capillary Refill: Capillary refill takes less than 2 seconds. Vitals and nursing note reviewed. ED COURSE: ED Course as of 04/17/241734Apr 17, 202431 BP: 122/78 [SELVIN] 0032 Temperature: 98.4 ???F (36.9 ???C) [SELVIN] 0032 Heart Rate: 78 [SELVIN] 0032 Respiratory Rate: 16 [SELVIN] 2 SpO2: 98 % [SELVIN] 0117 CT HEAD W/O CONTRAST No acute intracranial abnormality. [SELVIN] 0136 HCG, Urine: Negative [SELVIN] 0136 Urinalysis: Color Light Yellow Appearance Clear pH 6.0 Spec Aline 1.011 Protein Negative Blood Negative Bilirubin Negative Urobilinogen Negative Ketones Negative Leuk. Esterase Negative Nitrite Negative Glucose Negative Negative UA [SELVIN] 0136 Complete Blood Count W/Diff(!): WBC 6.2 RBC 4.71 Hemoglobin 12.9 Hematocrit 39.6 MCV 84 MCH 27.5 MCHC 32.7 Platelet 275 RDW-CV% 16.6(!) MPV 7.8 Neutrophils 64.0 Neutrophil # 3.99 Lymphocytes 24.3 Lymph Absolute 1.52 Monocytes 9.0 Monocyte Absolute 0.56 Eosinophil 1.5 Eosinophil Absolute 0.10 Basophils 1.3 Basophil # 0.08 MDW 16 The above laboratory study was reviewed and independently interpreted. Pertinent findings include: No leukocytosis, anemia or quantitative platelet abnormalities . [SELVIN] 0209 Magnesium(!): 1.7 The above laboratory study was reviewed and independently interpreted. Pertinent findings include: mild hypoMg. [SELVIN] 0209 Basic Metabolic Panel: Glucose 91 Sodium 141 Potassium 3.5 Carbon Dioxide 29 Chloride 102 BUN 8 Creatinine 0.78 Calcium 9.4 Anion Gap 14 Estimated GFR 110 The above laboratory study was reviewed and independently interpreted. Pertinent findings include: No clinically significant electrolyte or renal abnormalities . [SELVIN] 0229 CT HEAD W/O CONTRAST No acute intracranial abnormality. [SELVIN] ED Course User Index [SELVIN] Reynold Nunn DO Sage Randall 23 year old with PMH as noted above presenting to the emergency department for transient episodes of lightheadedness/conf usion. I personally reviewed and interpreted vital signs on arrival as documented in ED course. Exam: Patient maintaining airway, (more content not included)... Normal [facility] HCG URINEOrdered By: Aubrey Levine on 04-17-2024 HCG ( test) Ql (U) Negative Negative [facility] Interpretation and review of laboratory results [facility] HCG URINEon 04-17-2024 Beta HCG ( test) Ql (U) Negative Normal Negative [facility] Comment on above: Performed By: #### U R BETA #### [facility] [address] [place], [address] HIV 1 and 2 Ab and HIV 1 p24 Ag panel IAon 04-17-2024 HIV 1+2 Ab+HIV1 p24 Ag IA Ql Non-Reactive Non-Reactive [facility] Comment on above: No laboratory eviden ce for HIV Infection. Negative result does not rule out acute HIV infection. If acute HIV infection is suspected, recommend ordering an HIV-1 RNA quanitification test. Interpretation and review of laboratory results Normal [facility] HIV Information: [place] Rev. code 3701.243(E): This information has been disclosed to you from confidential records protected from disclosure by state law. You shall make no further disclosure of this information without the specific, written, and informed release of the individual to whom it pertains, or as otherwise permitted by state law. A general authorization for the release of medical or other information is not sufficient for the purpose of the release of HIV test results or diagnoses. [facility] HIV1 HIV2 AGAB SCRNon 2023 HIV AG-AB SCREEN Non-Reactive Normal Non-Reactive [facility] Comment on above: Order Comment: HIV Information: ???[place] Rev. code 3701.243(E): This information has been disclosed to you from confidential records protected from disclosure by state law. ???You shall make no further disclosure of this information without the specific, written, and informed release of the individual to whom it pertains, or as otherwise permitted by state law. ???A general authorization for the release of medical or other information is not sufficient for the purpose of the release of HIV test results or diagnoses. Result Comment: No l aboratory evidence for HIV Infection. Negative result does not rule out acute HIV infection. If acute HIV infection is suspected, recommend ordering an HIV-1 RNA quanitification test. Performed By: #### h iv1 hiv2 agab scrn #### [facility] [address], [place], MAGNESIUMon 04-17-2024 Interpretation and review of laboratory results Abnormal [facility] Magnesium [Mass/Vol] 1.7 mg/dL Low 1.9 - 2 .7 mg/dL [facility] Magnesium [Mass/Vol] 1.7 mg/dL Low 1.9-2.7 [facility] Comment on above: Performed By: #### C H8, MG #### [facility] [address], [place], No Panel Informationon 04-17 [facility] SUN Noteon 04-17-2024 [employer] Authentication Interface Message Text Substance Use Assessment 04/17/24, 1:54 AM Derick Pereira 23 year old; 2000 Gender AND Sex Assigned at : female; female Current Address/Phone: [address] [place] [phone], Phone numbers Data Unavailable Chief Complaint Patient presents with Dizziness Pt complains of dizziness and confusion x 1 day, pt denies drug/alcohol, denies new medications, denies chest pain or shortness of breath, denies flu like symptoms Financial: Hospital Account Acct Number Financial Class [id number] None Primary Payer Payer Patient Insurance ID Group Number [employer] - [employer] [id number] Plan Plan Number Plan Address Plan Phone PreAut Phone A[employer]IS JOHNSON/HMO,PPO,POS [address] / [place] [address] None None [place]: No Consent/Resources Patient screened but does not meet criteria for intervention due to other: no diagnosis of substance use. and patient without substantial need for ALEXY counseling. Would defer future identification on return unless referred by staff member. The substance use navigator assessment of the patient is currently Complete TITUS Ochoa Normal [facility] URINALYSISon 04-17-2024 Appearance (U) Clear Clear [facility] Bilirubin Ql (U) Negative Negative [facility] Color (U) Light Yellow Colorless [facility] Glucose Auto test strip (U) [Mass/Vol] Negative Negative mg/dL [facility] Hemoglobin Ql (U) Negative Negative [facility] Ketones Ql (U) Negative Negative mg/dL [facility] Leukocyte esterase Test strip Ql (U) Negative Negative [facility] Nitrite Ql (U) Negative Negative [facility] pH (U) 6.0 [pH] 5.0 - 8.0 [facility] Protein (U) [Mass/Vol] Negative Negative mg/dL [facility] Specific gravity (U) [Rel density] 1.011 NINF - 1.030 [facility] Urobilinogen Qn (U) Negative Negative mg/dL [facility] A negative leukocyte esterase AND negative nitrite test or absence of pyuria (urine WBC count <= 5-10) make a UTI (urinary tract infection) very unlikely in a non-neutropenic adult (<=5% likelihood in many studies). A positive leukocyte esterase, nitrite and/or pyuria is a nonspecific result. This can be seen in conditions other than a UTI e.g. asymptomatic bacteriuria, gynecologic infections, sexually transmitted infections, and noninfectious conditions (positive predictive value for UTI around 50%) [facility] Glucose Ql (U) Negative Normal Negative The [facility] Comment on above: Order Comment: A neg ative leukocyte esterase AND negative nitrite test or absence of pyuria (urine WBC count <= 5-10) make a UTI (urinary tract infection) very unlikely in a non-neutropenic adult (<=5% likelihood in many studies). A positive leukocyte esterase, nitrite and/or pyuria is a nonspecific result. This can be seen in conditions other than a UTI e.g. asymptomatic bacteriuria, gynecologic infections, sexually transmitted infections, and noninfectious conditions (positive predictive value for UTI around 50%) Performed By: #### u rinalysis #### [facility] [address] [place] [address], [id number] U APPEAR Clear Normal Clear [facility] Comment on above: Order Comment: A neg ative leukocyte esterase AND negative nitrite test or absence of pyuria (urine WBC count <= 5-10) make a UTI (urinary tract infection) very unlikely in a non-neutropenic adult (<=5% likelihood in many studies). A positive leukocyte esterase, nitrite and/or pyuria is a nonspecific result. This can be seen in conditions other than a UTI e.g. asymptomatic bacteriuria, gynecologic infections, sexually transmitted infections, and noninfectious conditions (positive predictive value for UTI around 50%) Performed By: #### u rinalysis #### [facility] [address] [place] [address], U BILI Negative Normal Negative [facility] [employer] [facility] Comment on above: Order Comment: A neg ative leukocyte esterase AND negative nitrite test or absence of pyuria (urine WBC count <= 5-10) make a UTI (urinary tract infection) very unlikely in a non-neutropenic adult (<=5% likelihood in many studies). A positive leukocyte esterase, nitrite and/or pyuria is a nonspecific result. This can be seen in conditions other than a UTI e.g. asymptomatic bacteriuria, gynecologic infections, sexually transmitted infections, and noninfectious conditions (positive predictive value for UTI around 50%) Performed By: #### u rinalysis #### [facility] [address] [place] [address], U BLOOD Negative Normal Negative [facility] [employer] [facility] Comment on above: Order Comment: A neg ative leukocyte esterase AND negative nitrite test or absence of pyuria (urine WBC count <= 5-10) make a UTI (urinary tract infection) very unlikely in a non-neutropenic adult (<=5% likelihood in many studies). A positive leukocyte esterase, nitrite and/or pyuria is a nonspecific result. This can be seen in conditions other than a UTI e.g. asymptomatic bacteriuria, gynecologic infections, sexually transmitted infections, and noninfectious conditions (positive predictive value for UTI around 50%) Performed By: #### u rinalysis #### [facility] [address] [place] [address], U COLOR Light Yellow Normal Colorless [facility] Comment on above: Order Comment: A neg ative leukocyte esterase AND negative nitrite test or absence of pyuria (urine WBC count <= 5-10) make a UTI (urinary tract infection) very unlikely in a non-neutropenic adult (<=5% likelihood in many studies). A positive leukocyte esterase, nitrite and/or pyuria is a nonspecific result. This can be seen in conditions other than a UTI e.g. asymptomatic bacteriuria, gynecologic infections, sexually transmitted infections, and noninfectious conditions (positive predictive value for UTI around 50%) Performed By: #### u rinalysis #### [facility] [address] [place] [address], U KETONE Negative Normal Negative [facility] Comment on above: Order Comment: A neg ative leukocyte esterase AND negative nitrite test or absence of pyuria (urine WBC count <= 5-10) make a UTI (urinary tract infection) very unlikely in a non-neutropenic adult (<=5% likelihood in many studies). A positive leukocyte esterase, nitrite and/or pyuria is a nonspecific result. This can be seen in conditions other than a UTI e.g. asymptomatic bacteriuria, gynecologic infections, sexually transmitted infections, and noninfectious conditions (positive predictive value for UTI around 50%) Performed By: #### u rinalysis #### [facility] [address] [place] [address], U LEUK Negative Normal Negative [facility] Comment on above: Order Comment: A neg ative leukocyte esterase AND negative nitrite test or absence of pyuria (urine WBC count <= 5-10) make a UTI (urinary tract infection) very unlikely in a non-neutropenic adult (<=5% likelihood in many studies). A positive leukocyte esterase, nitrite and/or pyuria is a nonspecific result. This can be seen in conditions other than a UTI e.g. asymptomatic bacteriuria, gynecologic infections, sexually transmitted infections, and noninfectious conditions (positive predictive value for UTI around 50%) Performed By: #### u rinalysis #### [facility] [address] [place] [address], U NITRITE Negative Normal Negative [facility] Comment on above: Order Comment: A neg ative leukocyte esterase AND negative nitrite test or absence of pyuria (urine WBC count <= 5-10) make a UTI (urinary tract infection) very unlikely in a non-neutropenic adult (<=5% likelihood in many studies). A positive leukocyte esterase, nitrite and/or pyuria is a nonspecific result. This can be seen in conditions other than a UTI e.g. asymptomatic bacteriuria, gynecologic infections, sexually transmitted infections, and noninfectious conditions (positive predictive value for UTI around 50%) Performed By: #### u rinalysis #### [facility] [address] [place] [address], U PH 6.0 Normal 5.0-8.0 [facility] [employer] [facility] Comment on above: Order Comment: A neg ative leukocyte esterase AND negative nitrite test or absence of pyuria (urine WBC count <= 5-10) make a UTI (urinary tract infection) very unlikely in a non-neutropenic adult (<=5% likelihood in many studies). A positive leukocyte esterase, nitrite and/or pyuria is a nonspecific result. This can be seen in conditions other than a UTI e.g. asymptomatic bacteriuria, gynecologic infections, sexually transmitted infections, and noninfectious conditions (positive predictive value for UTI around 50%) Performed By: #### u rinalysis #### [facility] [address] [place] [address], U PROTEIN Negative Normal Negative [facility] [employer] [facility] Comment on above: Order Comment: A neg ative leukocyte esterase AND negative nitrite test or absence of pyuria (urine WBC count <= 5-10) make a UTI (urinary tract infection) very unlikely in a non-neutropenic adult (<=5% likelihood in many studies). A positive leukocyte esterase, nitrite and/or pyuria is a nonspecific result. This can be seen in conditions other than a UTI e.g. asymptomatic bacteriuria, gynecologic infections, sexually transmitted infections, and noninfectious conditions (positive predictive value for UTI around 50%) Performed By: #### u rinalysis #### [facility] [address] [place] [address], U SG 1.011 Normal <=1.030 [facility] [employer] [facility] Comment on above: Order Comment: A neg ative leukocyte esterase AND negative nitrite test or absence of pyuria (urine WBC count <= 5-10) make a UTI (urinary tract infection) very unlikely in a non-neutropenic adult (<=5% likelihood in many studies). A positive leukocyte esterase, nitrite and/or pyuria is a nonspecific result. This can be seen in conditions other than a UTI e.g. asymptomatic bacteriuria, gynecologic infections, sexually transmitted infections, and noninfectious conditions (positive predictive value for UTI around 50%) Performed By: #### u rinalysis #### [facility] [address] [place] [address], U UROBILI Negative Normal Negative [facility] [employer] [facility] Comment on above: Order Comment: A neg ative leukocyte esterase AND negative nitrite test or absence of pyuria (urine WBC count <= 5-10) make a UTI (urinary tract infection) very unlikely in a non-neutropenic adult (<=5% likelihood in many studies). A positive leukocyte esterase, nitrite and/or pyuria is a nonspecific result. This can be seen in conditions other than a UTI e.g. asymptomatic bacteriuria, gynecologic infections, sexually transmitted infections, and noninfectious conditions (positive predictive value for UTI around 50%) Performed By: #### u rinalysis #### [facility] [address] [place] [address], Vital Signs Date Time Vital Sign Value Performing Clinician Faci lity 04-17-2024 04:42-0400 Diastolic blood pressure 69 mm[Hg] Eder Bhatiaaferro DO Work Phone: [employer] 04-17-2024 04:42-0400 Heart rate 75 /min Eder Rayliaferro D O Work Phone: [employer] 04-17-2024 04:42-0400 Respiratory rate 15 /min Eder [facility]aferro D O [facility] 04-17-2024 04:42-0400 SaO2% (BldA) [Mass fraction] 100 % Eder Rayliaferro DO Work Phone: [employer] 04-17-2024 04:42-0400 Systolic blood pressure 117 mm[Hg] Eder Gamboa ro DO Work Phone: [employer] 04-16-2024 23:47-0400 Body temperature 98.4 [degF] Eder Rizoo D O Work Phone: [employer] Encounters Encounter Date Encounter Type Care Provider Facility Start: 04-17-2024 End: 04-17-2024 Emergency department patient visit Eder Clemons [employer] Phone: [facility] Comment on above: Dizziness (Pt compla ins of dizziness and confusion x 1 day, pt denies drug/alcohol, denies new medications, denies chest pain or shortness of breath, denies flu like symptoms) Start: 08-22-2022 End: 12-01-[address] YOGI HENAO Facility:[facility] Procedures Date Procedure Procedure Detail Performing Clinician Start: 04-17-2024 Antibody hiv-1&hiv-2 single result Eder Clemons [employer] Phone: Start: 04-17-2024 Assay of magnesium [place] Clemons [employer] Phone: Start: 04-17-2024 Urine test visual color cmprsn meths Eder Clemons [employer] Phone: Start: 04-17-2024 Ct head/brain w/o contrast material Eder Clemons [employer] Phone: Plan of Treatment Date Care Activity Detail Author Start: 11-25-2051 Shingles (RZV) Vacci ne (1 of 2) Shingles (RZV) Vaccine (1 of 2) [facility] Start: 05-14-2024 Influenza vaccination Influenza Vacc ine (#1) [facility] Start: 04-14-2024 COVID-19 Vaccine ( season) COVID-19 Vaccine ( season) [facility] Start: 2022 Screening for malign ant neoplasm of cervix Pap Smear [facility] Start: 2020 Hepatitis A (HAV) Va ccine (optional start 19+ years) Hepatitis A (HAV) Vaccine (optional start 19+ years) [facility] Start: 11-25-2019 Hepatitis C screening Hepatitis C An tibody [facility] Start: 11-25-2019 Screening for Chlamy tess trachomatis STI Screening (Age 18-24) [facility] Start: 11-25-2019 [facility] Start: 2017 Meningococcal B (Bexsero,OMV) Vaccine (Optional,16-23 years) Meningococcal B (Bexsero,OMV) Vaccine (Optional,16-23 years) [facility] Start: 2016 Vaccination for iva n papillomavirus HPV Vaccine (1 - 3-dose series) [facility] Immunizations Immunization Date Immunization Notes Care Provider Alyssa thompsonolvin 06-09-2023 influenza, injectabl e, quadrivalent, contains preservative [facility]: [facility] 06-09-2023 influenza virus vacc ine, unspecified formulation [facility] Work Phone: [facility] 06-13-2022 Influenza, injectabl e, Madin Vivian Canine Kidney, preservative free, quadrivalent [facility] Work Phone: [facility] 06-23-2009 novel influenza-H1N1 -09, preservative-free, injectable [facility] DO Work Phone: [facility] 06-04-2003 diphtheria, tetanus toxoids and acellular pertussis vaccine, unspecified formulation [facility] DO Work Phone: [facility] 06-04-2003 haemophilus influenz ae type b vaccine, conjugate unspecified formulation [facility] DO Work Phone: [facility] 11-27-2002 measles, mumps and rubella virus vaccine [facility] DO Work Phone: [facility] 11-27-2002 varicella virus vaccine [facility] DO Work Phone: [facility] 07-01-2002 diphtheria, tetanus toxoids and acellular pertussis vaccine, unspecified formulation [facility] DO Work Phone: [facility] 07-01-2002 haemophilus influenz ae type b conjugate and Hepatitis B vaccine [facility] DO Work Phone: [facility] 07-01-2002 poliovirus vaccine, inactivated [facility] DO Work Phone: [facility] 04-22-2002 diphtheria, tetanus toxoids and acellular pertussis vaccine, unspecified formulation Eder Clemons DO Work Phone: [facility] 04-22-2002 haemophilus influenz ae type b conjugate and Hepatitis B vaccine Eder Clemons DO Work Phone: [facility] 04-22-2002 poliovirus vaccine, inactivated Eder Clemons DO Work Phone: [facility] 01-28-2002 diphtheria, tetanus toxoids and acellular pertussis vaccine, unspecified formulation Eder Clemons DO Work Phone: [facility] 01-28-2002 haemophilus influenz ae type b conjugate and Hepatitis B vaccine Eder Clemons DO Work Phone: [facility] 01-28-2002 poliovirus vaccine, inactivated Eder Clemons DO Work Phone: [facility] Payers Date Payer Category Payer Unknown ANTHEM - BLUE CR OSS BLUE CROSS/HMO,PPO,POS [id number] 2023-Present [address] [place] [address] PPO [id number] 2023 Blue Cross Blue Shield [id number] 2001 Unknown [id number] 2001 Unknown [id number] 2001 Unknown [id number] 1959 Self-pay Social History Date Type Detail Facility Tobacco smoking stat [facility] Tobacco smoking consumption unknown [facility] Start: 2001 Sex assigned at Not on file [facility] Gender identity Not on file [facility] Hospital Discharge instructions 04-17-2024 Discharge InstructionsAttachments Note Date & Type Note Facility 04-17-2024 Hospital Discharg e instructions Reynold Nunn DO - 04/17/2024 3:48 AM EDT Headache Instructions: Return to the ED if your headache worsens, you develop weakness or numbness on one side of the body or the other, you develop blurred vision or difficulty with speech. Procedures done during this visit: None The following attachments cannot be sent through Care Everywhere.Vasovagal Response Discharge Instructions (Albanian)documented in this encounter [facility] Clinical Note 04-17-2024 SHUKRI Note - Benito King CDCA - 04/17/2024 1:53 AM EDT Note Date & Type Note Facility 04-17-2024 Note Formatting of this n ote is different from the original. Substance Use Assessment 04/17/24, 1:54 AM Derick Pereira 23 year old; 2000 Gender & Sex Assigned at : female; female Current Address/Phone: [address] [place] [id number], Phone numbers Data Unavailable Chief Complaint Patient presents with Dizziness Pt complains of dizziness and confusion x 1 day, pt denies drug/alcohol, denies new medications, denies chest pain or shortness of breath, denies flu like symptoms Financial: Hospital Account Acct Number Financial Class [id number] None Primary Payer Payer Patient Insurance ID Group Number ANTHEM - ANAIS JOHNSON [id number] Plan Plan Number Plan Address Plan Phone [employer] Phone ANAIS JOHNSON/HMO,PPO,POS [address] / [place] [address] None None [place]: No Consent/Resources Patient screened but does not meet criteria for intervention due to other: no diagnosis of substance use. and patient without substantial need for ALEXY counseling. Would defer future identification on return unless referred by staff member. The substance use navigator assessment of the patient is currently Complete TITUS Ochoa [facility] Note 04-14-2024 SHUKRI Green - Benito King CDCA - 04/17/2024 1:53 AM EDT Note Date & Type Note Facility 04-14-2024 Miscellaneous Notes Formattin g of this note is different from the original. Substance Use Assessment 04/17/24, 1:54 AM Derick Pereira 23 year old; 2000 Gender & Sex Assigned at : female; female Current Address/Phone: [address] [place], [place] [address] [address], Phone numbers Data Unavailable Chief Complaint Patient presents with Dizziness Pt complains of dizziness and confusion x 1 day, pt denies drug/alcohol, denies new medications, denies chest pain or shortness of breath, denies flu like symptoms Financial: Hospital Account Acct Number Financial Class [id number] None Primary Payer Payer Patient Insurance ID Group Number [facility] [place] [id number] Plan Plan Number Plan Address Plan Phone PreAuth Phone BLUE CROSS/HMO,PPO,POS [address] / [place] [address] None None : No Consent/Resources Patient screened but does not meet criteria for intervention due to other: no diagnosis of substance use. and patient without substantial need for ALEXY counseling. Would defer future identification on return unless referred by staff member. The substance use navigator assessment of the patient is currently Complete TITUS Ochoa documented in this encounter [facility] Evaluation note Note Date & Type Note Facility Evaluation note Diagnosis Near syncope- Primary Syncope and collapse Lightheadedness Dizziness and giddiness documented in this encounter [facility] Summary Purpose Family History No Family History Records FoundNo Family History Records Found Advance Directives No Advanced Directives Records FoundNo Advanced Directives Records Found Additional Source Comments INFORMATION SOURCE (unrecogn ized section and content) DATE CREATED AUTHOR 12/01/2022 [facility] DATE CREATED AUTHOR AUTHOR'S ORGANIZ ATION 04/18/2024 [facility] [employer] [facility] Reason for Visit (unrecogniz ed section and content) Reason Comments Dizziness Pt complains of dizz iness and confusion x 1 day, pt denies drug/alcohol, denies new medications, denies chest pain or shortness of breath, denies flu like symptoms Scheduled Active and Recently Administ ered Medications (unrecognized section and content) Medication Order 04/15/2024 04/16/2024 04/17/2024 lactated ringers iv bolus (COMPLETED) 1,000 mL, at 9,999 mL/hr, Intravenous, FLUID BOLUS, 1 dose, On Mon04/17/24 at 0126 0130 (IV New Bag - P rovider: Chuck Neves RN)[id number] (IV Stop - Provider: Chuck Neves, LILLY) magnesium sulfate 2 GM/50ML in 50 mL ivpb (COMPLETED) 2 g (2,000 mg), Intravenous, ONCE, 1 dose, On Mon04/17/24 at 0241 0245 (IV New Bag - P rovider: Chuck Neves, LILLY)[id number] (IV Stop - Provider: Chuck Neves, LILLY) FOR RECORDS PERTAINING TO PATIENTS WHO ARE OR HAVE BEEN ENROLLED IN A CHEMICAL DEPENDENCY/SUBSTANCEABUSE PROGRAM, SOME INFORMATION MAY BE OMITTED. This clinical summary was aggregated from multiple sources. Caution should be exercised in using it in the provision of clinical care. This summary normalizes information from multiple sources, and as a consequence, information in this document may materially change the coding, format and clinical context of patient data. In addition, data may be omitted in some cases. CLINICAL DECISIONS SHOULD BE BASED ON THE PRIMARY CLINICAL RECORDS. [facility] [employer]. provides no warranty or guarantee of the accuracy or completeness of information in this document.
== END 2024-04-19 08:01 | disposition home or self-care (01) ==
PROVIDERS: PCP Internal Medicine; Visit Provider Orthopaedic Surgery
DX: Z01.818 Encounter for other preprocedural examination (principal); S83.512A Sprain of anterior cruciate ligament of left knee, initial encounter

== ENCOUNTER 2024-04-29 12:35 | Day surgery (SDC) | payer BC, SELFPAY ==
[2024-04-29] VITALS (12 sets, daily range): BP systolic 96–121; BP diastolic 63–82; PULSE 58–101; TEMP 36.1–36.6; O2SAT 95–99; BMI 21.7
[2024-04-29 13:07] LABS: HCG Qualitative NEGATIVE (NEGATIVE); Internal Control Within Normal Limits
--- NOTE | 2024-04-29 13:39 | PC.NURSE ---
Patient was consented for peripheral nerve block. Timeout performed per protocol. Patient positioned and placed on O2 per protocol. Vitals monitored pre, during and post block. Bedside ultrasound used to locate nerve to be blocked. Patient tolerated block well. Timeout was at 1323, block started at 1325 and was completed at 1329. Patient continues on O2 and monitor until she will be taken to the OR.
[2024-04-29] MEDS: CEFAZOLIN SODIUM 2 GM/50 ML D5W PREMIX IV (13:59)
[2024-04-29] MEDS: LACTATED RINGER'S SOLUTION 1,000 ML 50 ML IV (13:59)
[2024-04-29] MEDS: HYDROMORPHONE HCL 0.5 MG/0.5 ML SYRINGE IV (16:06)
--- NOTE | 2024-04-29 16:20 | PM.ORPRC ---
Procedure Note Date of procedure: 04/29/24 Pre-op diagnosis: 1. Left knee ACL tear 2. Medial meniscus tear 3. Chondral defect medial Post-op diagnosis: same as pre-op Procedure: Procedure: 1. Left knee anterior cruciate ligament reconstruction with hamstring tendon autograft 2. Microfracture medial femoral condyle Estimated blood loss: Minimal Specimens: None Complications: None Condition: Stable Consent: The risks, benefits, potential complications and outcomes of the proposed treatment(s) were discussed at length with the patient and family members present. They understood and have had all of their questions answered to their satisfaction and have elected to proceed. Procedure Description: The patient is identified in the preoperative holding area, and the operative site marked. The patient is then transferred to the operative suite, placed in the supine position, all bony prominences well padded, and above anesthesia provided. Examination under anesthesia of the operative knee revealed a positive Ramya and positive pivot shift test. No varus or valgus instability. Full knee extension and full flexion. A well padded proximal thigh tourniquet was placed. The leg was prepped and draped in the usual sterile fashion. The leg was elevate, exsanguinated, and the tourniquet was inflated to 275 mmHg. A 3.5 cm incision was made overlying the pes anserine tendons in a longitudinal fashion. Blunt dissection was carried down to the sartorius fascia which was incised inline with the incision. The gracilis and semitendinosus tendons were then harvested with a tendon stripper. These were taken to the back table and prepared for implantation.. When this was complete they measured 8.5 mm in diameter. After the graft was prepared the arthroscopy was performed through an anteromedial and anterolateral portals. Findings in the patellofemoral compartment included intact articular cartilage. In the medial compartment the medial meniscus from her prior injury and surgery had a near complete meniscectomy. The mid body and posterior horn were nearly back to capsule. The very posterior horn had a superior component and an inferior component that were stable and less than 2 mm and thus no benefit from additional meniscectomy. 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 Edges were stable. Microfracture was performed with the chondral pick. In the notch the ACL was absent with a minimal portion scarred to the PCL consistent with a chronic tear. The PCL was intact. In the lateral compartment the lateral meniscus was intact as was the articular cartilage. Attention was next turned to the ACL reconstruction. Tibial tunnel guide was used for introduction of the tibial tunnel guidepin. This was overreamed to 9 mm and then a dilator was used to smooth off back michelle. Bony debris was removed. The knee was then placed in hyperflexion, the [id number] guide was placed at the 1:30 position. Guidepin was placed. This was overreamed to a 9 mm tunnel to a depth of 30 mm creating a 1.5 mm back wall. Bony debris was removed. The graft was then passed from the tibial tunnel into the femoral tunnel and secured in place with a Mytec femoral Intrafix system. Solid fixation was achieved. Next with 20 degrees of knee flexion, posterior drawer on the knee, appropriate tension on the graft was then secured to the tibial tunnel with a Mytec Intrafix advance system. Solid fixation was achieved. Ramya testing at this point revealed that was stable knee with minimal excursion and firm endpoint. The arthroscope was introduced into the joint and there was no prominent hardware and no impingement of the graft upon the notch through full knee range of motion. Appropriate tension on the graft Knee joint was drained of arthroscopy fluid. Sartorius was repaired with a #2 FiberWire suture. Skin was closed with absorbable sutures in layers. Steri-Strips and sterile dressing were placed. Bulky Johnson dressing was placed. Tourniquet was deflated after 72 minutes at 275 mmHg. T ROM brace was placed. Patient was awakened and brought to the recovery room in stable condition. There were no intraoperative or immediate postoperative complications. Anesthesia: regional and General-LMA Surgeon: Jori Roberts Senior Mechanical Designer: Funmi Alves Estimated blood loss (mL): 5 Pathology: none sent Condition: stable Disposition: PACU
[2024-04-29] MEDS: OXYCODONE HCL/ACETAMINOPHEN 5MG/325MG 1 TAB PO (16:26)
== END 2024-04-29 17:15 | disposition home or self-care (01) ==
PROVIDERS: Anesthesiology; PCP Internal Medicine; Visit Provider Orthopaedic Surgery
PROC: (CPT 1400; principal; 2024-04-29 14:00)
DX: S83.512A Sprain of anterior cruciate ligament of left knee, initial encounter (principal); M94.262 Chondromalacia, left knee; S83.232D Complex tear of medial meniscus, current injury, left knee, subsequent encounter; M23.8X2 Other internal derangements of left knee; X58.XXXA Exposure to other specified factors, initial encounter
CPT/HCPCS: 29879; 29888; 36415; 64447; 84703; C1713; J0690; J1100; J1170; J1885; J2250; J2405; J2704; J2795; J3010

== ENCOUNTER 2024-05-03 09:55 | Outpatient (RCR) | payer BC, SELFPAY | END 2024-07-10 10:41 | disposition home or self-care (01) | LOC: PT 09:55 | PROVIDERS: PCP Internal Medicine; Visit Provider Orthopaedic Surgery | DX: S83.512D Sprain of anterior cruciate ligament of left knee, subsequent encounter (principal); S72.425D Nondisplaced fracture of lateral condyle of left femur, subsequent encounter for closed fracture with routine healing; M23.8X2 Other internal derangements of left knee | CPT/HCPCS: 97014; 97110; 97112; 97140; 97162 ==

== ENCOUNTER 2024-09-04 19:50 | Emergency (ER) | payer BC, SELFPAY ==
[2024-09-04] VITALS (15 sets, daily range): BP systolic 108–153; BP diastolic 67–94; PULSE 80–112; TEMP 37; O2SAT 91–99; BMI 21.1
--- OUTSIDE RECORDS SUMMARY | 2024-09-04 19:55 | XMS_ITS | CCD ---
Author Organization [facility] Care Team Providers Care Director Market Intelligence Name Role Phone JULIANO, DR YOGI Newman Attending Unavailable JULIANO, DR YOGI Newman Consulting Unavailable JULIANO, DR YOGI Newman Admitting Unavailable ALMANZA, DR ROSANA Huertas Primary Care Unavailable Unavailable Primary Care Provider UnavailTEZ Morales Attending Unavailable PROVIDER, UNKNOWN Admitting Unavailable PROVIDER, UNKNOWN Admitting Unavailable EDER CLEMONS Attending Unavailable PROVIDER, UNKNOWN Attending Unavailable PROVIDER, UNKNOWN Admitting Unavailable PROVIDER, UNKNOWN Attending Unavailable PROVIDER, UNKNOWN Admitting Unavailable Medications Completed/Discontinued Medications Medication Drug Class(es) Dates Sig (Normalized) Sig (Original) calcium chloride 0.0014 meq/ml / potassium chloride 0.004 meq/ml / sodium chloride 0.103 meq/ml / sodium lactate 0.028 meq/ml injectable solution (1 source) Start: 04-17-2024 End: 04-17-2024 take 1 dose intravenously every hour 1,000 mL, at 9,999 mL/hr, Intravenous, FLUID BOLUS, 1 dose, On Mon04/17/24 at 0126 hydrOXYzine hydrochloride 25 mg oral tablet (1 source) Antihistamine Start: 06-05-2024 End: 06-05-2024 take 1 dose by mouth once 50 mg, Oral, Once, 1 dose, On Mon06/05/24 at 0011 iohexol (OMNIPAQUE) 350 MG/ML injection (1 source) Start: 06-04-2024 End: 06-04-2024 take 1 dose intravenously once 100 mL, Intravenous Push, Once at Radiology exam, 1 dose, Starting on Mon06/04/24 at 2235, Until Mon06/04/24 at 2226, Imaging Protocol Orders 50 ml magnesium sulfate 40 mg/ml injection (1 source) Start: 04-17-2024 End: 04-17-2024 2 g (2,000 mg), Intravenous, ONCE, 1 dose, On Mon04/17/24 at 0241 Problems Problem Classification Problem Date Documented Da te Episodic/Chronic Cardiac dysrhythmias (1 source) Tachycardia; Translations: [Tachycardia, unspecified] 06-05-2024 Episodic Conditions associated with dizziness or vertigo (1 source) Lightheadedness; Translations: [Dizziness and giddiness] 04-17-2024 Episodic Other lower respiratory disease (1 source) Dyspnea; Translations: [Shortness of breath] 06-05-2024 Episodic Syncope (1 source) Near syncope; Translations: [Syncope and collapse] 04-17-2024 Episodic Results Test Name Value Interpretation Reference Range Facility BASIC METABOLIC PANEL 05-15 Anion gap [Moles/Vol] 23 mmol/L High 06-02 [facility] Comment on above: Performed By: #### C H8, HCG, ETOH #### [facility] [address] [place] [address], Calcium [Mass/Vol] 9.5 mg/dL Normal 8.6-10.3 [facility] Comment on above: Performed By: #### C H8, HCG, ETOH #### [facility] [address] [place] [address], Chloride [Moles/Vol] 100 mmol/L Normal 98-107 [facility] Comment on above: Performed By: #### C H8, HCG, ETOH #### [facility] [address] [place] [address], CO2 [Moles/Vol] 21 mmol/L Normal 21-31 The [facility] Comment on above: Performed By: #### C H8, HCG, ETOH #### [facility] [address] [place] [address], Creatinine [Mass/Vol] 0.80 mg/dL Normal 0.60-1.20 [facility] Comment on above: Performed By: #### C H8, HCG, ETOH #### [facility] [address] [place] [address], ESTIMATED GFR (CKD-EPI) 107 mL/min/1.73sqm Normal >=60 The [facility] Comment on above: Result Comment: 2020 CKD EPI Equation using Creatinine without Race Comment: Estimated glomerular filtration rate (eGFR) is calculated without a race coefficient. Values should be interpreted in the context of the patient's full clinical presentation. Reference: 1. Alberto C, Lani M, Montserrat [place], et al.. A Unifying Approach for GFR Estimation: Recommendations of the NKF-ASN Task Force on Reassessing the Inclusion of Race in Diagnosing Kidney Disease. [place] Journal of Kidney Diseases 202;79(2):268-88.e1. 2. N Engl J Med 1 Vol. 385 Issue 19 Pages [phone] Performed By: #### C H8, HCG, ETOH #### [facility] [address] [place], [place], Glucose [Mass/Vol] 92 mg/dL Normal 74-109 [facility] Comment on above: Performed By: #### C H8, HCG, ETOH #### [facility] [address] [place], [place], Potassium [Moles/Vol] 3.6 mmol/L Normal 3.5-5.0 The [facility] Comment on above: Performed By: #### C H8, HCG, ETOH #### [facility] [address] [place], [place], Sodium [Moles/Vol] 140 mmol/L Normal 136-145 [facility] Comment on above: Performed By: #### C H8, HCG, ETOH #### [facility] [address] [place], [place], Urea nitrogen [Mass/Vol] 13 mg/dL Normal 7-25 The [facility] Comment on above: Performed By: #### C H8, HCG, ETOH #### [facility] [address] [place], [place], Basic metabolic 2000 panelon 06-04-2024 Anion gap [Moles/Vol] 23 mmol/L High 10 - 20 [facility] Calcium [Mass/Vol] 9.5 mg/dL 8.6 - 10. 3 mg/dL [facility] Chloride [Moles/Vol] 100 mmol/L 98 - 10 7 mmol/L [facility] CO2 [Moles/Vol] 21 mmol/L 21 - 31 mmol/L [facility] Creatinine [Mass/Vol] 0.80 mg/dL 0.60 - 1.20 mg/dL [facility] GFR/1.73 sq M.predicted CKD-EPI (S/P/Bld) [Vol rate/Area] 107 - PINF [facility] Comment on above: 2020 CKD EPI Equatio [...] Inclusion of Race in Diagnosing Kidney Disease. [place] Journal of Kidney Diseases 2021;79(2):268-88.e1. 2. N Engl J Med 2020 Vol. 385 Issue 19 Pages [phone] Glucose [Mass/Vol] 92 mg/dL 74 - 109 mg/dL [facility] Potassium [Moles/Vol] 3.6 mmol/L 3.5 - 5.0 mmol/L [facility] Sodium [Moles/Vol] 140 mmol/L 136 - 145 mmol/L [facility] Urea nitrogen [Mass/Vol] 13 mg/dL 7 - 25 mg/dL [facility] CBC WITH DIFFERENTIALon 05-15 Basophils (Bld) [#/Vol] 0.09 10*3/uL 0.00 - 0.20 K/uL [facility] Basophils/100 WBC (Bld) 1.0 % NINF - 1.9 % [facility] Eosinophils (Bld) [#/Vol] 0.01 10*3/uL 0.00 - 0.70 K/uL [facility] Eosinophils/100 WBC (Bld) 0.2 % 0.1 - 4.0 % [facility] Erythrocyte distribution width (RBC) [Ratio] 14.9 % High 11.5 - 14.5 % [facility] Hematocrit (Bld) [Volume fraction] 43.7 % 36.0 - 46.0 % [facility] Hemoglobin (Bld) [Mass/Vol] 14.8 g/dL 12.0 - 15.0 g/dL [facility] Interpretation and review of laboratory results Abnormal [facility] Lymphocytes (Bld) [#/Vol] 2.80 10*3/uL 1.00 - 4.80 K/uL [facility] Lymphocytes/100 WBC (Bld) 29.6 % 24.0 - 44.0 % [facility] MCH (RBC) [Entitic mass] 29.2 pg 26.0 - 34.0 pg [facility] MCHC (RBC) [Mass/Vol] 33.9 g/dL 32.0 - 35.9 g/dL [facility] MCV (RBC) [Entitic vol] 86 fL 80 - 100 fL [facility] Monocyte distribution width Auto (Bld) [Entitic vol] 15 NINF - 20 [facility] Monocytes (Bld) [#/Vol] 0.49 10*3/uL 0.20 - 1.00 K/uL [facility] Monocytes/100 WBC (Bld) 5.2 % 2.0 - 11.0 % [facility] Neutrophils (Bld) [#/Vol] 6.07 10*3/uL 1.50 - 8.00 K/uL [facility] Neutrophils/100 WBC (Bld) 64.1 % 31.0 - 76.0 % [facility] Platelet mean volume (Bld) [Entitic vol] 8.2 fL 7.5 - 11.2 fL [facility] Platelets (Bld) [#/Vol] 345 10*3/uL 150 - 400 K/uL [facility] RBC (Bld) [#/Vol] 5.07 10*6/uL [facility] WBC (Bld) [#/Vol] 9.5 10*3/uL 4.5 - 11.5 K/uL [facility] Basophils (Bld) [#/Vol] 0.09 10*3/uL Normal 0.00-0.[address] [facility] Comment on above: Performed By: #### C BCDSAT #### [facility] [address] [place] [address], Basophils/100 WBC (Bld) 1.0 % Normal <=1.[address] [facility] Comment on above: Performed By: #### C BCDSAT #### [facility] [address] [place] [address], Eosinophils (Bld) [#/Vol] 0.01 10*3/uL Normal 0.00-0.70 The [facility] Comment on above: Performed By: #### C BCDSAT #### [facility] [address] [place], [place], Eosinophils/100 WBC (Bld) 0.2 % Normal 0.1-4.[address] [facility] [address] [facility] Comment on above: Performed By: #### C BCDSAT #### [facility] [address] [place], [place], Erythrocyte distribution width (RBC) [Ratio] 14.9 % High 11.5-14.5 The [facility] Comment on above: Performed By: #### C BCDSAT #### [facility] [address] [place], [place], Hematocrit (Bld) [Volume fraction] 43.7 % Normal 36.0-46.0 The [facility] Comment on above: Performed By: #### C BCDSAT #### [facility] [address] [place], [place], Hemoglobin (Bld) [Mass/Vol] 14.8 g/dL Normal 12.0-15.0 The [facility] Comment on above: Performed By: #### C BCDSAT #### [facility] [address] [place], [place], Lymphocytes (Bld) [#/Vol] 2.80 10*3/uL Normal 1.00-4.[address] [facility] [address] [facility] Comment on above: Performed By: #### C BCDSAT #### [facility] [address] [place], [place], Lymphocytes/100 WBC (Bld) 29.6 % Normal 24.0-44.0 The [facility] Comment on above: Performed By: #### C BCDSAT #### [facility] [address] [place], [place], MCH (RBC) [Entitic mass] 29.2 pg Normal 26.0-34.0 The [facility] Comment on above: Performed By: #### C BCDSAT #### [facility] [address] [place], [place], MCHC (RBC) [Mass/Vol] 33.9 g/dL Normal 32.0-35.9 The [facility] Comment on above: Performed By: #### C BCDSAT #### [facility] [address] [place], [place], MCV (RBC) [Entitic vol] 86 fL Normal 80-100 [facility] Comment on above: Performed By: #### C BCDSAT #### [facility] [address] [place], [place], MONOCYTE DISTRIBUTION WIDTH 15 Normal <=20 [facility] Comment on above: Performed By: #### C BCDSAT #### [facility] [address] [place], [place], Monocytes (Bld) [#/Vol] 0.49 10*3/uL Normal 0.20-1.00 [facility] Comment on above: Performed By: #### C BCDSAT #### [facility] [address] [place], Monocytes/100 WBC (Bld) 5.2 % Normal 2.0-11.0 The [facility] Comment on above: Performed By: #### C BCDSAT #### [facility] [address] [place], Neutrophils (Bld) [#/Vol] 6.07 10*3/uL Normal 1.50-8.00 [facility] Comment on above: Performed By: #### C BCDSAT #### [facility] [address] [place], Neutrophils/100 WBC (Bld) 64.1 % Normal 31.0-76.0 The [facility] Comment on above: Performed By: #### C BCDSAT #### [facility] [address] [place], [place], Platelet mean volume (Bld) [Entitic vol] 8.2 fL Normal 7.5-11.2 The [facility] Comment on above: Performed By: #### C BCDSAT #### [facility] [address] [place], [place], Platelets (Bld) [#/Vol] 345 10*3/uL Normal 150-400 The [facility] Comment on above: Performed By: #### C BCDSAT #### [facility] [address] [place], [place], RBC (Bld) [#/Vol] 5.07 10*6/uL Normal 4.00-5.20 The [facility] Comment on above: Performed By: #### C BCDSAT #### [facility] [address] [place], [place], WBC (Bld) [#/Vol] 9.5 10*3/uL Normal 4.5-11.5 [facility] Comment on above: Performed By: #### C BCDSAT #### [facility] [address] [place], [place], CTA CHEST PULMONARY EMBOLISM W/on 06-04-2024 CTA CHEST PULMONARY EMBOLISM W/ EXAMINATION: CTA CHEST PULMONARY EMBOLISM W/ 06/04/2024 10:34 PM CLINICAL HISTORY: Pulmonary embolism suspected ASSOCIATED DIAGNOSIS: Pulmonary embolism suspected ORDERING PROVIDER: CHRISTINA [employer] NOTE: COMPARISON: None TECHNIQUE: Axial images of the chest were obtained from above the lung apices through the level of the adrenal glands during the bolus administration of intravenous contrast. Multiplanar and 3D maximum intensity projection reformulation's were created from the raw CT data which were interpreted in conjunction with the axial images to render the findings listed below. Before infusion of intravenous contrast, radiology personnel investigated the possibility of an allergic history and of any history of reaction to iodinated contrast material. Contrast Protocol: Omnipaque 350 [>or =100lb] 100 ml [<100 lb] 1 ml per 1 lb. INTRA-PROCEDURE MEDS: iohexol (OMNIPAQUE) 350 MG/ML injection 100 mL Route: Intravenous Push FINDINGS: Exam Quality: Overall exam quality is excellent. Pulmonary arterial enhancement is optimal, the breath hold is optimal, and there are no significant artifacts impacting image quality. Pulmonary Arteries: There are no filling defects within the pulmonary arterial system to suggest pulmonary embolus. Cardiovasculature: Unremarkable Mediastinum/Pericard ium: Unremarkable Pleura: Unremarkable Central Airways: Widely patent. Lungs: No focal consolidation. Nodules: There are a few small scattered pulmonary nodules. For example, a 4 mm solid pulmonary nodule in the right upper lobe (Series 6, Image 60) and a 4 mm solid pulmonary nodule in the right lower lobe (Series 6, Image 150). Lymph Nodes: No thoracic lymphadenopathy is evident. Visualized musculoskeletal structures: No acute fracture or destructive osseous lesion is identified. Included images of the upper abdomen: Unremarkable IMPRESSION: 1. Negative for acute pulmonary embolus. 2. No focal pulmonary process. 3. Less than 5 mm pulmonary nodules. MACRO: None Normal [facility] [employer] [facility] CTA Pulmonary arteries for p ulmonary embolus W contrast IVOrdered By: Rm Colby on 06-04-2024 CT DLP 298.8 (mGy.cm) [email or web address] Work Phone: CT Series Chest,Chest,Chest Gonna[employer]ero alth Work Phone: CTDI VOL 5.3 (mGy),6.0 (mGy),8.6 (mGy) [employer] Work Phone: NEGATIVE P/E Negative [employer] Work Phone: PHANTOM TYPE IEC Body Dosimetry Phantom,IEC Body Dosimetry Phantom,IEC Body Dosimetry Phantom [employer] Work Phone: [employer] Work Phone: CTA Pulmonary arteries for p ulmonary embolus W contrast Marito 06-04-2024 EXAMINATION: CTA CHEST PULMONARY EMBOLISM W/ 06/04/2024 10:34 PM CLINICAL HISTORY: Pulmonary embolism suspected ASSOCIATED DIAGNOSIS: Pulmonary embolism suspected ORDERING PROVIDER: CHRISTINA [employer] NOTE: COMPARISON: None TECHNIQUE: Axial images of the chest were obtained from above the lung apices through the level of the adrenal glands during the bolus administration of intravenous contrast. Multiplanar and 3D maximum intensity projection reformulation's were created from the raw CT data which were interpreted in conjunction with the axial images to render the findings listed below. Before infusion of intravenous contrast, radiology personnel investigated the possibility of an allergic history and of any history of reaction to iodinated contrast material. Contrast Protocol: Omnipaque 350 [>or =100lb] 100 ml [<100 lb] 1 ml per 1 lb. INTRA-PROCEDURE MEDS: iohexol (OMNIPAQUE) 350 MG/ML injection 100 mL Route: Intravenous Push FINDINGS: Exam Quality: Overall exam quality is excellent. Pulmonary arterial enhancement is optimal, the breath hold is optimal, and there are no significant artifacts impacting image quality. Pulmonary Arteries: There are no filling defects within the pulmonary arterial system to suggest pulmonary embolus. Cardiovasculature: Unremarkable Mediastinum/Pericard ium: Unremarkable Pleura: Unremarkable Central Airways: Widely patent. Lungs: No focal consolidation. Nodules: There are a few small scattered pulmonary nodules. For example, a 4 mm solid pulmonary nodule in the right upper lobe (Series 6, Image 60) and a 4 mm solid pulmonary nodule in the right lower lobe (Series 6, Image 150). Lymph Nodes: No thoracic lymphadenopathy is evident. Visualized musculoskeletal structures: No acute fracture or destructive osseous lesion is identified. Included images of the upper abdomen: Unremarkable IMPRESSION: 1. Negative for acute pulmonary embolus. 2. No focal pulmonary process. 3. Less than 5 mm pulmonary nodules. MACRO: None RADIOLOGY Rm Cloby MD - 06/04/2024 EXAMINATION: CTA CHEST PULMONARY EMBOLISM W/ 06/04/2024 10:34 PM CLINICAL HISTORY: Pulmonary embolism suspected ASSOCIATED DIAGNOSIS: Pulmonary embolism suspected ORDERING PROVIDER: CHRISTINA [employer] NOTE: COMPARISON: None TECHNIQUE: Axial images of the chest were obtained from above the lung apices through the level of the adrenal glands during the bolus administration of intravenous contrast. Multiplanar and 3D maximum intensity projection reformulation's were created from the raw CT data which were interpreted in conjunction with the axial images to render the findings listed below. Before infusion of intravenous contrast, radiology personnel investigated the possibility of an allergic history and of any history of reaction to iodinated contrast material. Contrast Protocol: Omnipaque 350 [>or =100lb] 100 ml [<100 lb] 1 ml per 1 lb. INTRA-PROCEDURE MEDS: iohexol (OMNIPAQUE) 350 MG/ML injection 100 mL Route: Intravenous Push FINDINGS: Exam Quality: Overall exam quality is excellent. Pulmonary arterial enhancement is optimal, the breath hold is optimal, and there are no significant artifacts impacting image quality. Pulmonary Arteries: There are no filling defects within the pulmonary arterial system to suggest pulmonary embolus. Cardiovasculature: Unremarkable Mediastinum/Pericard ium: Unremarkable Pleura: Unremarkable Central Airways: Widely patent. Lungs: No focal consolidation. Nodules: There are a few small scattered pulmonary nodules. For example, a 4 mm solid pulmonary nodule in the right upper lobe (Series 6, Image 60) and a 4 mm solid pulmonary nodule in the right lower lobe (Series 6, Image 150). Lymph Nodes: No thoracic lymphadenopathy is evident. Visualized musculoskeletal structures: No acute fracture or destructive osseous lesion is identified. Included images of the upper abdomen: Unremarkable IMPRESSION: 1. Negative for acute pulmonary embolus. 2. No focal pulmonary process. 3. Less than 5 mm pulmonary nodules. MACRO: None [facility] Radiology Study observation (narrative) [facility] ED Provider Noteson 06-04-20 Skull Splitter Authentication Interface Message Text Attestation signed by Tez Casarez MD at 06/06/2024 4:38 AM ATTENDING NOTE I saw and evaluated the patient. I personally obtained the howard and critical portions of the history and physical exam. I reviewed the resident's documentation and discussed the patient with the resident. I agree with the resident's medical decision making as documented in the resident's note. Tez Casarez MD Smoking cessation counseling of less than 3 minutes was provided to the patient including Reinforced decision not to smoke. EMERGENCY DEPARTMENT - VISIT NOTE HISTORY OF PRESENT ILLNESS ------ Chief Complaint Patient presents with Shortness of breath SOB x3.5 hrs Manager Produce: not needed - patient preferred language is Gabonese. The history is provided by the Patient. Derick Pereira is a 23 year old female with past medical history of none significant presenting to the ED for SOB, chest pressure for the past 4 hours. Patient states she was just watching TV when she had sudden onset shortness of breath. She felt like she could not catch her breath. She is recovering from ACL surgery from one month ago and is still on crutches. She is on Norma control. She does not smoke, denies personal or family history of blood clots. Per chart review: 05/06: post op visit for left knee ACL repair, sutures removed and continuing therapy PAST HISTORY -- Pertinent Past History: No past medical history on file. There is no problem list on file for this patient. Pertinent Social History: PHYSICAL EXAM --- BP 133/82 Pulse (!) 137 Temp 99.2 ???F (37.3 ???C) (Oral) Resp (!) 21 LMP 05/28/2024 SpO2 97% Constitutional: Nursing triage notes reviewed, Vital signs reviewed, Alert, and Awake HENT: Posterior orpharynx symmetric and noninjected Eyes: Pupils equal round and reactive to light and Extraocular muscles intact Neck: Supple Lung: Clear to auscultation and tachypneic Cardiac: Tachycardic Abdomen: Soft, Nondistended, and Nontender Ext: Full ROM all 4 extremities and Normal peripheral perfusion and pulses Neuro: Alert normally oriented Skin: Warm and Dry Psych: anxious MEDICAL DECISION MAKING and ED COURSE - Nursing triage and assessment notes reviewed and incorporated. Review of External (Non- ED) Notes: see HPI Independent Test Interpretation: see ED course Evaluated by EM attending Garth Casarez Course: ED Course as of 06/05/24605Jun 04, 2024 2318 HCG: <0.6 Neg [HK] 2339 CT Pulm Emb Chest Neg CT PE [HK] ED Course User Index [HK] Sepideh Souza MD Assessment AND Plan: Derick Pereira is a 23 year old female who presented to the ED for sudden onset shortness of breath. She has had recent surgery on her ACL and is still on crutches, she also takes control. Her tachycardia, tachypnea, and risk factors were very concerning for pulmonary embolism and CT PE was performed and was negative for pulmonary embolism. BMP was not concerning for electrolyte abnormalities. CBC not concerning for anemia or infection as the cause of shortness of breath. No pneumothorax or pneumonia identified on CT PE. Low risk for cardiac cause of chest pain given age and EKG not concerning. Discussed with the patient that there is no clear cause of her shortness of breath and to continue to follow up with her PCP. She is agreeable to this plan and ready for discharge. IMPRESSION AND DISPOSITION -------- Clinical Impression Diagnosis Comment Tachycardia [R00.0] Shortness of breath [R06.02] Disposition: Home The patient has received a medical screening examination and within reasonable clinical confidence an emergency medical condition has not been identified. Counseling: Spoke with the patient and discussed today's findings, in addition to providing specific details for the plan of care and expected course. They were given the opportunity to ask questions. Discussed return precautions and importance of follow-up. Advised to follow-up with PCP. Advised to return to the ED for changing or worsening symptoms, new symptoms, complaint specific precautions, and precautions listed on the discharge paperwork. This note was created with the assistance of speech recognition software. Sepideh Souza MD Normal [facility] [employer] [facility] ETHANOL, SERUMon 06-04-2024 Ethanol [Mass/Vol] 39 mg/dL High None Detected [facility] Ethanol [Mass/Vol] 39 mg/dL High None Detected The [facility] Comment on above: Performed By: #### C H8, HCG, ETOH #### [facility] [address] [place] [address], HCG, QUANTITATIVEon 06-04-20 24 HCG Qn NINF [facility] Interpretation and review of laboratory results Normal [facility] HCG < 0.6 Normal <5.0 [facility] Comment on above: Performed By: #### C H8, HCG, ETOH #### [facility] [address] [place] [address], No Panel Informationon 06-04 Interpretation and review of laboratory results Abnormal [facility] BASIC METABOLIC PANELon Anion gap [Moles/Vol] 14 mmol/L Normal 10-20 The [facility] Comment on above: Performed By: #### Bessy Mccullough, CH8 #### S PATHOLOGY LABORATORY [address] [place] [address], Calcium [Mass/Vol] 9.4 mg/dL Normal 8.6-10.3 The [facility] Comment on above: Performed By: #### Bessy Mccullough, CH8 #### [facility] [address] [place] [address], Chloride [Moles/Vol] 102 mmol/L Normal 98-107 The [facility] Comment on above: Performed By: #### Bessy Mccullough, CH8 #### [facility] [address] [place] [address], CO2 [Moles/Vol] 29 mmol/L Normal 21-31 The [facility] Comment on above: Performed By: #### Bessy Mccullough, CH8 #### [facility] [address] [place] [address], Creatinine [Mass/Vol] 0.78 mg/dL Normal 0.60-1.20 The [facility] Comment on above: Performed By: #### Bessy Mccullough, CH8 #### [facility] [address] [place] [address], ESTIMATED GFR (CKD-EPI) 110 mL/min/1.73sqm Normal >=60 The [facility] Comment on above: Result Comment: 2020 CKD EPI Equation using Creatinine without Race Comment: Estimated glomerular filtration rate (eGFR) is calculated without a race coefficient. Values should be interpreted in the context of the patient's full clinical presentation. Reference: 1. Alberto Avina, Lani M, Montserrat DAVIES, et al.. A Unifying Approach for GFR Estimation: Recommendations of the NKF-ASN Task Force on Reassessing the Inclusion of Race in Diagnosing Kidney Disease. [place] Journal of Kidney Diseases 2021;79(2):268-88.e1. 2. N Engl J Med 2020 Vol. 385 Issue 19 Pages 8639-1274 Performed By: #### Bessy Mccullough CH8 #### S PATHOLOGY LABORATORY [address] [place] [address], Glucose [Mass/Vol] 91 mg/dL Normal 74-109 The [facility] Comment on above: Performed By: #### Bessy Mccullough CH8 #### S PATHOLOGY LABORATORY [address] [place] [address], Potassium [Moles/Vol] 3.5 mmol/L Normal 3.5-5.0 The [facility] Comment on above: Performed By: #### Bessy Mccullough CH8 #### S PATHOLOGY LABORATORY [address] [place] [address], Sodium [Moles/Vol] 141 mmol/L Normal 136-145 The [facility] Comment on above: Performed By: #### Bessy Mccullough CH8 #### [facility] [address] [place] [address], Urea nitrogen [Mass/Vol] 8 mg/dL Normal 7-25 The [facility] Comment on above: Performed By: #### Bessy Mccullough, CH8 #### S PATHOLOGY LABORATORY [address] [place] [address], Basic metabolic 2000 panelon 04-17-2024 Anion gap [Moles/Vol] 14 mmol/L 10 - 20 [facility] Calcium [Mass/Vol] 9.4 mg/dL 8.6 - 10. 3 mg/dL [facility] Chloride [Moles/Vol] 102 mmol/L 98 - 10 7 mmol/L [facility] CO2 [Moles/Vol] 29 mmol/L 21 - 31 mmol/L [facility] Creatinine [Mass/Vol] 0.78 mg/dL 0.60 - 1.20 mg/dL [facility] GFR/1.73 sq M.predicted CKD-EPI (S/P/Bld) [Vol rate/Area] 110 - PINF [facility] Comment on above: 2020 CKD EPI Equatio [...] Inclusion of Race in Diagnosing Kidney Disease. [place] Journal of Kidney Diseases 2021;79(2):268-88.e1. 2. N Engl J Med 2020 Vol. 385 Issue 19 Pages 2161-0365 Glucose [Mass/Vol] 91 mg/dL 74 - 109 mg/dL [facility] Interpretation and review of laboratory results Normal [facility] Potassium [Moles/Vol] 3.5 mmol/L 3.5 - 5.0 mmol/L [facility] Sodium [Moles/Vol] 141 mmol/L 136 - 145 mmol/L [facility] Urea nitrogen [Mass/Vol] 8 mg/dL 7 - 25 mg/dL [facility] CBC WITH DIFFERENTIALon 09-0 Basophils (Bld) [#/Vol] 0.08 10*3/uL 0.00 - 0.20 K/uL [facility] Basophils/100 WBC (Bld) 1.3 % NINF - 1.9 % [facility] Eosinophils (Bld) [#/Vol] 0.10 10*3/uL 0.00 - 0.70 K/uL [facility] Eosinophils/100 WBC (Bld) 1.5 % 0.1 - 4.0 % [facility] Erythrocyte distribution width (RBC) [Ratio] 16.6 % High 11.5 - 14.5 % [facility] Hematocrit (Bld) [Volume fraction] 39.6 % 36.0 - 46.0 % [facility] Hemoglobin (Bld) [Mass/Vol] 12.9 g/dL 12.0 - 15.0 g/dL [facility] Interpretation and review of laboratory results Abnormal [...] (Bld) [#/Vol] 0.08 10*3/uL Normal 0.00-0.20 The [facility] Comment on above: Performed By: #### C BCDSAT #### S PATHOLOGY LABORATORY [address] [place] [address], Basophils/100 WBC (Bld) 1.3 % Normal <=1.9 [facility] Comment on above: Performed By: #### C BCDSAT #### S PATHOLOGY LABORATORY [address] [place] [address], Eosinophils (Bld) [#/Vol] 0.10 10*3/uL Normal 0.00-0.[address] [facility] [address] [address] [facility] Comment on above: Performed By: #### C BCDSAT #### [facility] PATHOLOGY [facility]ORATORY [address] [place] [address], Eosinophils/100 WBC (Bld) 1.5 % Normal 0.1-4.[address] [facility] Comment on above: Performed By: #### C BCDSAT #### [facility] PATHOLOGY [facility]ORATORY [address] [place] [address], Erythrocyte distribution width (RBC) [Ratio] 16.6 % High 11.5-14.[address] [facility] [facility] [address] [facility] Comment on above: Performed By: #### C BCDSAT #### [facility] PATHOLOGY LABORATORY [address] [place] [address], Hematocrit (Bld) [Volume fraction] 39.6 % Normal 36.0-46.0 The [facility] [employer] [facility] Comment on above: Performed By: #### C BCDSAT #### [facility] PATHOLOGY LABORATORY [address] [place] [address], Hemoglobin (Bld) [Mass/Vol] 12.9 g/dL Normal 12.0-15.[address] [facility] [facility] Comment on above: Performed By: #### C BCDSAT #### [facility] PATHOLOGY LABORATORY [address] [place] [address], Lymphocytes (Bld) [#/Vol] 1.52 10*3/uL Normal 1.00-4.[address] [facility] Comment on above: Performed By: #### C BCDSAT #### [facility] PATHOLOGY LABORATORY [address] [place], [place], Lymphocytes/100 WBC (Bld) 24.3 % Normal 24.0-44.[address] [facility] [facility] Comment on above: Performed By: #### C BCDSAT #### S PATHOLOGY LABORATORY [address] [place] [address], MCH (RBC) [Entitic mass] 27.5 pg Normal 26.0-34.0 [facility] Comment on above: Performed By: #### C BCDSAT #### S PATHOLOGY LABORATORY [address] [place], [place], MCHC (RBC) [Mass/Vol] 32.7 g/dL Normal 32.0-35.9 The [facility] Comment on above: Performed By: #### C BCDSAT #### S PATHOLOGY LABORATORY [address] [place], [place], MCV (RBC) [Entitic vol] 84 fL Normal 80-100 The [facility] Comment on above: Performed By: #### C TIMBODSAT #### [facility] PATHOLOGY LABORATORY [address] [place], [place], MONOCYTE DISTRIBUTION WIDTH 16 Normal <=20 The [facility] Comment on above: Performed By: #### C TIMBODSAT #### [facility] PATHOLOGY LABORATORY [address] [place], Monocytes (Bld) [#/Vol] 0.56 10*3/uL Normal 0.20-1.00 The [facility] Comment on above: Performed By: #### Kailyn HOFFAT #### [facility] PATHOLOGY LABORATORY [address] [place], Monocytes/100 WBC (Bld) 9.0 % Normal 2.0-11.0 The [facility] Comment on above: Performed By: #### C BCDSAT #### [facility] PATHOLOGY LABORATORY [address] [place], Neutrophils (Bld) [#/Vol] 3.99 10*3/uL Normal 1.50-8.00 The [facility] Comment on above: Performed By: #### C BCDSAT #### [facility] PATHOLOGY LAB[facility]ORY [address] [place], Neutrophils/100 WBC (Bld) 64.0 % Normal 31.0-76.0 The [facility] Comment on above: Performed By: #### C BCDSAT #### S PATHOLOGY LABORATORY [address] [place], [place], Platelet mean volume (Bld) [Entitic vol] 7.8 fL Normal 7.5-11.2 The [facility] Comment on above: Performed By: #### C BCDSAT #### [facility] [address] [place], [place], Platelets (Bld) [#/Vol] 275 10*3/uL Normal 150-400 The [facility] Comment on above: Performed By: #### C BCDSAT #### [facility] [address] [place], [place], RBC (Bld) [#/Vol] 4.71 10*6/uL Normal 4.00-5.20 The [facility] Comment on above: Performed By: #### C BCDSAT #### [facility] [address] [place], [place], WBC (Bld) [#/Vol] 6.2 10*3/uL Normal 4.5-11.5 The [facility] Comment on above: Performed By: #### C BCDSAT #### [facility] [address] [place], [place], CT HEAD W/O CONTRASTon 04-17 CT [...] acute intracranial abnormality. MACRO: None Normal The [facility] CT Head WO contrastOrdered B y: Richie Adam on 04-17-2024 CT DLP 1151.86 (mGycm) [facility] Work Phone: CT Series Head,Head,Head [facility] h Work Phone: CTDI VOL 71.99 (mGy) [facility] Work Phone: PHANTOM TYPE IEC Head Dosimetry Phantom [facility] Work Phone: [facility] Work Phone: CT Head WO contraston 2023 [...] IMPRESSION: No acute intracranial abnormality. MACRO: None [facility] Radiology Study observation (narrative) [facility] ED Provider Noteson 04-17-20 24 Sk[employer] Splitter Authentication Interface Message Text EMERGENCY DEPARTMENT NOTE [...] reviewed. ED COURSE: ED Course as of 04/17/24 173MonApr 17, 2024 0032 BP: 122/78 [SELVIN] 0032 Temperature: 98.4 ???F (36.9 ???C) [SELVIN] 0032 Heart Rate: 78 [SELVIN] 0032 Respiratory Rate: 16 [SELVIN] 0032 SpO2: 98 % [SELVIN] 0117 CT HEAD W/O CONTRAST No acute intracranial abnormality. [SELVIN] 0136 HCG, Urine: Negative [SELVIN] 0136 Urinalysis: Color Light Yellow Appearance Clear pH 6.0 Spec [place] 1.011 Protein Negative Blood Negative Bilirubin Negative [...] airway, (more content not included)... Normal The [employer] [facility] HCG URINEOrdered By: Aubrey Levine on 04-17-2024 HCG ( test) Ql (U) Negative Negative [facility] Interpretation and review of laboratory results Normal [facility] HCG URINEon 04-17-2024 Beta HCG ( test) Ql (U) Negative Normal Negative The [employer] [facility] Comment on above: Performed By: #### U R BETA ####[facility] PATHOLOGY [id number] [place], [address] HIV 1 and 2 Ab and HIV 1 p24 Ag panel IAon 04-17-2024 HIV 1+2 Ab+HIV1 p24 Ag IA Ql Non-Reactive Non-Reactive [facility] Comment on above: No laboratory eviden ce for HIV Infection. Negative result does not rule out acute HIV infection. If acute HIV infection is suspected, recommend ordering an HIV-1 RNA quanitification test. Interpretation and review of laboratory results Normal [facility] HIV Information: [place] Rev. code 3701.243(E): This information has been [...] release of HIV test results or diagnoses. [facility] HIV1 HIV2 AGAB SCRNon 2023 HIV AG-AB SCREEN Non-Reactive Normal Non-Reactive The [facility] Comment on above: Order Comment: HIV Information: ???[place] Rev. code 3701.243(E): This information has been [...] agab scrn #### [facility] [address] [place], [place], MAGNESIUMon 04-17-2024 Interpretation and review of laboratory results Abnormal [facility] Magnesium [Mass/Vol] 1.7 mg/dL Low 1.9 - 2 .7 mg/dL [facility] Magnesium [Mass/Vol] 1.7 mg/dL Low 1.9-2.7 The [facility] Comment on above: Performed By: #### ELISSA Doe ####[facility] PATHOLOGY [id number] [place], [place], No Panel Informationon 04-17 [facility] SUN Noteon 04-17-2024 Skull Splitter Authentication Interface Message Text Substance Use Assessment 04/17/24, 1:54 AM Derick Pereira 23 year old; 2000 Gender AND Sex Assigned at : female; female Current Address/Phone: [address] [place] [id number], Phone numbers Data Unavailable Chief Complaint Patient presents with Dizziness Pt complains of dizziness and confusion x 1 day, pt denies drug/alcohol, denies new medications, denies chest pain or shortness of breath, denies flu like symptoms Financial: Hospital Account Acct Number Financial Class [id number] None Primary Payer Payer Patient Insurance ID Group Number [id number] ANAIS JOHNSON [id number] Plan Plan Number Plan Address Plan Phone PreAuth Phone ANAIS CROSS/HMO,PPO,POS [address] / [place] [address] None None : No Consent/Resources Patient screened but does not meet criteria for intervention due to other: no diagnosis of substance use. and patient without substantial need for ALEXY counseling. Would defer future identification on return unless referred by staff member. The substance use navigator assessment of the patient is currently Complete TITUS Ochoa Normal The [facility] URINALYSISon 04-17-2024 Appearance (U) Clear Clear [...] (positive predictive value for UTI around 50%) [facility] Glucose Ql (U) Negative Normal Negative The [facility] Comment on above: Order Comment: [...] around 50%) Performed By: #### u rinalysis ####S PATHOLOGY [id number] [place] [address], U APPEAR Clear Normal Clear [facility] Comment on above: Order Comment: A [...] around 50%) Performed By: #### u rinalysis ####S PATHOLOGY [id number] [place], [place], U BILI Negative Normal Negative [facility] Comment on above: Order Comment: A [...] around 50%) Performed By: #### u rinalysis ####S PATHOLOGY [id number] [place], [place], U BLOOD Negative Normal Negative [facility] Comment on above: Order Comment: [...] around 50%) Performed By: #### u rinalysis ####[facility] PATHOLOGY [id number] [place] [address], U COLOR Light Yellow Normal Colorless The [employer] [facility] Comment on above: Order Comment: A [...] around 50%) Performed By: #### u rinalysis ####[facility] PATHOLOGY [id number] [place], [place], U KETONE Negative Normal Negative The [facility] Comment on above: Order Comment: A [...] around 50%) Performed By: #### u rinalysis ####S PATHOLOGY [id number] [place] [address], U LEUK Negative Normal Negative [facility] Comment on above: Order Comment: A [...] around 50%) Performed By: #### u rinalysis ####[facility] PATHOLOGY [id number] [place] [address], U NITRITE Negative Normal Negative [facility] Comment on above: Order Comment: A [...] around 50%) Performed By: #### u rinalysis ####[facility] PATHOLOGY [id number] [place] [address], U PH 6.0 Normal 5.0-8.0 [facility] Comment on above: Order Comment: A [...] around 50%) Performed By: #### u rinalysis ####S PATHOLOGY [id number] [place] [address], U PROTEIN Negative Normal Negative The [facility] Comment on above: Order Comment: [...] around 50%) Performed By: #### u rinalysis ####S PATHOLOGY [id number] [place], [place], U SG 1.011 Normal <=1.030 The [facility] Comment on above: Order Comment: [...] around 50%) Performed By: #### u rinalysis ####S PATHOLOGY [id number] [place], [place], U UROBILI Negative Normal Negative The [employer] [facility] Comment on above: Order Comment: A [...] around 50%) Performed By: #### u rinalysis ####S PATHOLOGY [id number] [place], [place], Vital Signs Date Time Vital Sign Value Performing Clinician Faci jaycob 06-04-2024 23:32-0400 Heart rate 102 /min Tez Casarez MD Work Phone: [facility] 06-04-2024 23:32-0400 Respiratory rate 15 /min Tez Casarez MD Work Phone: [facility] 06-04-2024 23:32-0400 SaO2% (BldA) [Mass fraction] 97 % Tez Casarez MD Work Phone: [facility] 06-04-2024 22:12-0400 Body temperature 99.19 [degF] Tez Casarez MD Work Phone: [facility] 06-04-2024 22:12-0400 Diastolic blood pressure 82 mm[Hg] Tez Casarez MD Work Phone: [facility] 06-04-2024 22:12-0400 Systolic blood pressure 133 mm[Hg] Tez Casarez MD Work Phone: [facility] 04-17-2024 04:42-0400 Diastolic blood pressure 69 mm[Hg] Eder Tagliaferro DO Work Phone: [facility] 04-17-2024 04:42-0400 Heart rate 75 /min Eder Tagliaferro D O Work Phone: [facility] 04-17-2024 04:42-0400 Respiratory rate 15 /min Eder Tagliaferro D O Work Phone: [facility] 04-17-2024 04:42-0400 SaO2% (BldA) [Mass fraction] 100 % Eder Tagliaferro DO Work Phone: [facility] 04-17-2024 04:42-0400 Systolic blood pressure 117 mm[Hg] Eder Tagliaferro DO Work Phone: [facility] 04-16-2024 23:47-0400 Body temperature 98.4 [degF] Eder Tagliaferro D O Work Phone: [facility] Encounters Encounter Date Encounter Type Care Provider Facility Start: 06-04-2024 End: 06-05-2024 Emergency department patient visit Tez Casarez MD Work Phone: [facility] Emergency Medicine Comment on above: Shortness of breath (SOB x3.5 hrs ) Start: 06-04-2024 Emergency department patient visit UNKNOWN PROVIDER Facility:[facility] Start: 04-17-2024 End: 04-17-2024 Emergency department patient visit Eder Clemons DO Work Phone: [facility] Medicine Comment on above: Dizziness (Pt compla ins of dizziness and confusion x 1 day, pt denies drug/alcohol, denies new medications, denies chest pain or shortness of breath, denies flu like symptoms) Start: 08-22-2022 End: 12-01-[address] YOGI HENAO Facility:[facility] Procedures Date Procedure Procedure Detail Performing Clinician Start: 06-04-2024 Ct angiography chest w/contrast/noncontrast Christina Aguilar MD Work Phone: Start: 06-04-2024 Drug screen quantita tive alcohols Christina Aguilar MD Work Phone: Start: 06-04-2024 Gonadotropin chorion ic quantitative Christina Aguilar MD Work Phone: Start: 04-17-2024 Antibody hiv-1&hiv-2 single result Eder Clemons DO Work Phone: Start: 04-17-2024 Assay of magnesium [place] Clemons DO Work Phone: Start: 04-17-2024 Urine test visual color cmprsn meths Eder Clemons DO Work Phone: Start: 04-17-2024 Ct head/brain w/o co ntrast material Eder Clemons DO Work Phone: Plan of Treatment Date Care Activity Detail Author Start: 11-25-2051 Shingles (RZV) Vacci ne (1 of 2) Shingles (RZV) Vaccine (1 of 2) [facility] Start: 05-14-2024 Influenza vaccination Influenza Vacc ine (#1) [facility] Start: 04-14-2024 COVID-19 Vaccine ( season) COVID-19 Vaccine ( season) [facility] Start: 04-14-2024 Influenza vaccination Influenza Vacc ine (#1) [facility] Start: 2022 Screening for malign ant neoplasm of cervix Pap Smear [facility] Start: 2020 Hepatitis A (HAV) Va ccine (optional start 19+ years) Hepatitis A (HAV) Vaccine (optional start 19+ years) [facility] Start: 11-25-2019 Hepatitis C screening Hepatitis C An tibody [facility] Start: 11-25-2019 Screening for Chlamy tess trachomatis STI Screening (Age 18-24) [facility] Start: 11-25-2019 Tdap Booster Tdap Booster [facility] Start: 2017 Meningococcal B (Bexsero,OMV) Vaccine (Optional,16-23 years) Meningococcal B (Bexsero,OMV) Vaccine (Optional,16-23 years) [facility] Start: 2016 Vaccination for iva n papillomavirus HPV Vaccine (1 - 3-dose series) [facility] Immunizations Immunization Date Immunization Notes Care Provider [facility] 06-09-2023 influenza, injectabl e, quadrivalent, contains preservative Eder Rizoo DO Work Phone: [facility] 06-09-2023 influenza virus vacc ine, unspecified formulation Eder Rizoo DO Work Phone: [facility] 06-13-2022 Influenza, injectabl e, Madin Vivian Canine Kidney, preservative free, quadrivalent Eder Rizoo DO Work Phone: [facility] 06-23-2009 novel influenza-H1N1 -09, preservative-free, injectable Eder Rizoo DO Work Phone: [facility] 06-04-2003 diphtheria, tetanus toxoids and acellular pertussis vaccine, unspecified formulation Eder Rizoo DO Work Phone: [facility] 06-04-2003 haemophilus influenz ae type b vaccine, conjugate unspecified formulation Eder [facility] DO Work Phone: [facility] 11-27-2002 measles, mumps and rubella virus vaccine Eder Clemons DO Work Phone: [facility] 11-27-2002 varicella virus vaccine [place] Clemons DO Work Phone: [facility] 07-01-2002 diphtheria, tetanus toxoids and acellular pertussis vaccine, unspecified formulation Eder Clemons DO Work Phone: [facility] 07-01-2002 haemophilus influenz ae type b conjugate and Hepatitis B vaccine Eder Clemons DO Work Phone: [facility] 07-01-2002 poliovirus vaccine, inactivated Eder Clemons DO Work Phone: [facility] 04-22-2002 diphtheria, tetanus toxoids and acellular pertussis vaccine, unspecified formulation Eder Clemons DO Work Phone: [facility] 04-22-2002 haemophilus influenz ae type b conjugate and Hepatitis B vaccine Eder Clemons DO Work Phone: [facility] 04-22-2002 poliovirus vaccine, inactivated Eder Clemons DO Work Phone: [facility] 01-28-2002 diphtheria, tetanus toxoids and acellular pertussis vaccine, unspecified formulation Eder Clemons DO Work Phone: [facility] 01-28-2002 haemophilus influenz ae type b conjugate and Hepatitis B vaccine Eder Clemons DO Work Phone: [facility] 01-28-2002 poliovirus vaccine, inactivated Eder Clemons DO Work Phone: [facility] Payers Date Payer Category Payer Unknown ANTHEM - BLUE CR OSS BLUE CROSS/HMO,PPO,POS [id number] 2023-Present [address] [place] [address] PPO [id number] 2023 Blue Cross Blue Shield [id number] 2001 Unknown [id number] 2001 Unknown [id number] 2001 Unknown [id number] 2001 Unknown [id number] 2001 Unknown [id number] 32 1959 Self-pay Social History Date Type Detail Facility Tobacco smoking stat [facility] Tobacco smoking consumption unknown [facility] Start: 2000 Sex assigned at Not on file [facility] Gender identity Not on file [facility] Hospital Discharge instructions 06-05-2024 Discharge InstructionsAttachments Note Date & Type Note Facility 06-05-2024 Hospital Discharg e instructions Sepideh Souza MD - 06/05/2024 12:52 AM EDT Procedures done during this visit: None The following attachments cannot be sent through Care Everywhere.Shortness of Breath (Dyspnea) Discharge Instructions (Gabonese)documented in this encounter [facility] Clinical Note 06-04-2024 Note Date & Type Note Facility 06-04-2024 Note Physician Triage Not e The patient was seen by me in intake for a brief history and physical obtained for triage reasons only. My exam is intended to be an initial medical screening exam for disposition within our ED with limited initial orders placed, when appropriate, to expedite care by the treating team. HIPAA: Verbal permission granted from patient to discuss case, including protected health information, in front of family / friends in room at the time of the evaluation. Patient complains of breathing heavy with chest palpitations, she had surgery on her knee about a month ago. Focused Exam: patient is dyspneic and tachycardic, no visible lower extremity swelling. Patient consumed alcohol today when downtown but denies drinking alcohol every day. The patient is deemed appropriate for west. Initial orders: EKG, Labs, CT The remainder of testing, treatment, and diagnostic plan will be assumed by the next clinician who will be seeing the patient as a primary patient, creating a plan and impression, and final disposition of the patient from the ED. I had a limited role in this case. PLEASE SEE OTHER ATTENDING/RESIDENT/PHYSICIAN/FISH CAKE MAKER/PA NOTATION SCRIBE ATTESTATION 06/04/2024 10:26 PM This note is prepared by Esperanza Deng acting as Scribe for Christina Aguilar I personally performed the services described in this documentation, as scribed by Esperanza Deng in my presence, and it is both accurate and complete. Christina Aguilar. Note has been documented by Esperanza Deng on 06/04/2024 [facility] Physician Emergency department Note 06-04-2024 Christina Aguilar MD - 06/04/2024 10:12 PM EDT Note Date & Type Note Facility 06-04-2024 Physician Emergency department Note Physician Triage Note The patient was seen by me in intake for a brief history and physical obtained for triage reasons only. My exam is intended to be an initial medical screening exam for disposition within our ED with limited initial orders placed, when appropriate, to expedite care by the treating team. HIPAA: Verbal permission granted from patient to discuss case, including protected health information, in front of family / friends in room at the time of the evaluation. Patient complains of breathing heavy with chest palpitations, she had surgery on her knee about a month ago. Focused Exam: patient is dyspneic and tachycardic, no visible lower extremity swelling. Patient consumed alcohol today when downtown but denies drinking alcohol every day. The patient is deemed appropriate for west. Initial orders: EKG, Labs, CT The remainder of testing, treatment, and diagnostic plan will be assumed by the next clinician who will be seeing the patient as a primary patient, creating a plan and impression, and final disposition of the patient from the ED. I had a limited role in this case. PLEASE SEE OTHER ATTENDING/RESIDENT/PHYSICIAN/ FISH CAKE MAKER/PA NOTATION -------- SCRIBE ATTESTATION ------- 06/04/2024 10:26 PM This note is prepared by Esperanza Deng acting as Scribe for Christina Aguilar I personally performed the services described in this documentation, as scribed by Esperanza Deng in my presence, and it is both accurate and complete. Christina Aguilar. Note has been documented by Esperanza Deng on 06/04/2024 [employer] Work Phone: Emergency department Note 06-04-2024 Christina Aguilar MD - 06/04/2024 10:12 PM EDT Note Date & Type Note Facility 06-04-2024 Emergency department Note For matting of this note might be different from the original. Physician Triage Note The patient was seen by me in intake for a brief history and physical obtained for triage reasons only. My exam is intended to be an initial medical screening exam for disposition within our ED with limited initial orders placed, when appropriate, to expedite care by the treating team. HIPAA: Verbal permission granted from patient to discuss case, including protected health information, in front of family / friends in room at the time of the evaluation. Patient complains of breathing heavy with chest palpitations, she had surgery on her knee about a month ago. Focused Exam: patient is dyspneic and tachycardic, no visible lower extremity swelling. Patient consumed alcohol today when downtown but denies drinking alcohol every day. The patient is deemed appropriate for west. Initial orders: EKG, Labs, CT The remainder of testing, treatment, and diagnostic plan will be assumed by the next clinician who will be seeing the patient as a primary patient, creating a plan and impression, and final disposition of the patient from the ED. I had a limited role in this case. PLEASE SEE OTHER ATTENDING/RESIDENT/PHYSICIAN/FISH CAKE MAKER/PA NOTATION SCRIBE ATTESTATION 06/04/2024 10:26 PM This note is prepared by Esperanza Deng acting as Scribe for Christina Aguilar I personally performed the services described in this documentation, as scribed by Esperanza Dneg in my presence, and it is both accurate and complete. Christina Aguilar. Note has been documented by Esperanza Deng on 06/04/2024 documented in this encounter [facility] Hospital Discharge instructions 04-17-2024 Discharge InstructionsAttachments Note [...] sent through Care Everywhere.Vasovagal Response Discharge Instructions (Gabonese)documented in this encounter [facility] Clinical Note 04-17-2024 SUN Note - Bentio King CDCA - 04/17/2024 1:53 AM EDT Note Date & Type Note Facility 04-17-2024 Note Formatting of this n ote is different from the original. Substance Use Assessment 04/17/24, 1:54 AM Derick Pereira 23 year old; 2000 Gender & Sex Assigned at : female; female Current Address/Phone: [address] [place] [id number], Phone numbers Data Unavailable Chief Complaint Patient presents with Dizziness Pt complains of dizziness and confusion x 1 day, pt denies drug/alcohol, denies new medications, denies chest pain or shortness of breath, denies flu like symptoms Financial: Hospital Account Acct Number Financial Class [id number] None Primary Payer Payer Patient Insurance ID Group Number IZABEL JOHNSON [id number] Plan Plan Number Plan Address Plan Phone [employer] Phone ANAIS ENGLEWOOD/O,PPO,POS [address] / [place] [address] None None [place]: No Consent/Resources Patient screened but does not meet criteria for intervention due to other: no diagnosis of substance use. and patient without substantial need for ALEXY counseling. Would defer future identification on return unless referred by staff member. The substance use navigator assessment of the patient is currently Complete TITUS Ochoa [facility] Note 04-14-2024 SUN Note - Benito King CDCA - 04/17/2024 1:53 AM EDT Note Date & Type Note Facility 04-14-2024 Miscellaneous Notes Formattin g of this note is different from the original. Substance Use Assessment 04/17/24, 1:54 AM Derick Randall 23 year old; 2000 Gender & Sex Assigned at : female; female Current Address/Phone: [address] [place] [address], Phone numbers Data Unavailable Chief Complaint Patient presents with Dizziness Pt complains of dizziness and confusion x 1 day, pt denies drug/alcohol, denies new medications, denies chest pain or shortness of breath, denies flu like symptoms Financial: Hospital Account Acct Number Financial Class [id number] None Primary Payer Payer Patient Insurance ID Group Number IZABEL JOHNSON [id number] Plan Plan Number Plan Address Plan Phone PreAuth Phone [employer] CROSS/HMO,PPO,POS [address] / [place] [address] None None [place]: No Consent/Resources Patient screened but does not [...] and giddiness documented in this encounter [facility] Evaluation note Note Date & Type Note Facility Evaluation note Diagnosis Tachycardia- Primary Tachycardia, unspecified Shortness of breath documented in this encounter [facility] Summary Purpose Family History No Family History Records FoundNo Family History Records Found Advance Directives No Advanced Directives Records FoundNo Advanced Directives Records Found Additional Source Comments INFORMATION SOURCE (unrecogn ized section and content) DATE CREATED AUTHOR 12/01/2022 The Cecilia bejarano DATE CREATED AUTHOR AUTHOR'S ORGANIZ ATION 06/12/2024 [employer] Reason for Visit (unrecogniz ed section and content) Reason Comments Dizziness Pt complains of dizz iness and confusion x 1 day, pt denies drug/alcohol, denies new medications, denies chest pain or shortness of breath, denies flu like symptoms Reason Comments Shortness of breath SOB x3.5 hrs Scheduled Active and Recently Administ ered Medications (unrecognized section and content) Medication Order 04/15/2024 04/16/2024 04/17/2024 lactated ringers iv bolus (COMPLETED) 1,000 mL, at 9,999 mL/hr, Intravenous, FLUID BOLUS, 1 dose, On Mon04/17/24 at 0126 0130 (IV New Bag - P rovider: Chuck Neves, LILLY)[id number] (IV Stop - Provider: Chuck Neves, RN) magnesium sulfate 2 GM/50ML in 50 mL ivpb (COMPLETED) 2 g (2,000 mg), Intravenous, ONCE, 1 dose, On Mon04/17/24 at 0241 0245 (IV New Bag - P rovider: Chuck Neves, LILLY)0438 (IV Stop - Provider: Chuck Neves, RN) Scheduled Medication Order 06/03/2024 06/04/2024 06/05/2024 hydrOXYzine (ATARAX) tablet (COMPLETED) 50 mg, Oral, Once, 1 dose, On Mon06/05/24 at 0011 0209 (Given - Provid er: Daksha Ritter RN) iohexol (OMNIPAQUE) 350 MG/ML injection (COMPLETED) 100 mL, Intravenous Push, Once at Radiology exam, 1 dose, Starting on Mon06/04/24 at 2235, Until Mon06/04/24 at 2226, Imaging Protocol Orders 2226 (Given - Provider: Myesha Plasencia) FOR RECORDS PERTAINING TO PATIENTS WHO ARE [...] BE BASED ON THE PRIMARY CLINICAL RECORDS. [facility]. provides no warranty or guarantee of the accuracy or completeness of information in this document.
--- NOTE | 2024-09-04 20:15 | ECG_ITS ---
[facility] Test Date: 2024-09-04 Pat Name: HODAN NAVARRO Department: Room: - Gender: Female [place] Man: : 2000 Requested By: BEBA CAR Order Number: [id number] Reading MD: BEBA CAR Measurements Intervals [place] Rate: 95 P: 66 MS: 150 QRS: 75 QRSD: 76 T: 19 QT: 334 QTc: 386 Interpretive Statements 1100 Sinus rhythm 4068 Nonspecific Twave abnormality 9130 borderline ECG No previous ECG available for comparison Electronically Signed On 09-05-2024 6:43:35 EST by BEBA CAR
--- NOTE | 2024-09-04 20:16 | ED_ITS ---
HPI - Anxiety General Chief Complaint: Anxiety Stated Complaint: anxiety Time Seen by Provider: 09/04/24 19:54 Source: patient Mode of arrival: walk-in Limitations: no limitations History of Present Illness HPI narrative: 23-year-old female presents to the emergency department for chief complaint of feeling anxious. She has been feeling like this for few days and she states that she really does not have anything to be anxious about specifically. She has not had any financial or legal or social issues. Denies any drug use. She saw her family doctor and was started on Prozac 2 days ago. She has not felt an y effect from it yet. No fever or vomiting. Sometimes she has the feeling that she is going to have diarrhea. Related Data Home Medications ?Medication ?Instructions ?Recorded ?Confirmed norgestimate 0.25 mg-ethinyl 1 tab PO DAILY 04/19/24 09/04/24 estradiol 35 mcg tablet (Akiko) fluoxetine 10 mg capsule mg 09/04/24 Previous Rx's ?Medication ?Instructions ?Recorded ketorolac 10 mg tablet 10 mg PO TID 5 days #15 tabs 04/29/24 oxycodone-acetaminophen 5 mg-325 1 tab PO Q6H PRN pain #20 tabs 04/29/24 mg tablet (Percocet) alprazolam 0.5 mg tablet (Xanax) 0.25 mg (1/2 x 0.5 mg) PO BID PRN 09/04/24 anxiety 7 days #14 tabs Allergies Allergy/AdvReac Type Severity Reaction Status Date / Time No Known Drug Allergies Allergy Verified 09/04/24 20:01 Review of Systems ROS Narrative A ten point review of systems is negative except as noted above. 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 ?M23.8X2 - Other internal derangements of left knee (ICD-10) Closed nondisplaced fracture of lateral condyle of left femur ?S72.425A - Nondisplaced fracture of lateral condyle of left femur, initial encounter for closed fracture (ICD-10) Medial meniscus tear ?S83.249A - Other tear of medial meniscus, current injury, unspecified knee, initial encounter (ICD-10) ACL tear ?S83.519A - Sprain of anterior cruciate ligament of unspecified knee, initial encounter (ICD-10) Surgical History S/P arthroscopic knee surgery ?Z98.890 - Other specified postprocedural states (ICD-10) History of surgery on lower extremity ?Z98.890 - Other specified postprocedural states (ICD-10) History of surgery on arm ?Z98.890 - Other specified postprocedural states (ICD-10) Family History Other Family history of cancer Family history of diabetes mellitus Social History (Updated 04/29/24 @ 13:03 by Kavita Morton RN) Within the past year, how often did you have a drink containing alcohol: 2-3 times a week Smoking status: Never smoker Non-prescribed substance use: denies use Highest level of school completed/degree received: Bachelor's degree Little interest or pleasure in doing things: not at all Feeling down, depressed, or hopeless: not at all Exam Narrative Exam Narrative: Nurses note and vital signs reviewed and patient is not hypoxic. General: The patient appears in no apparent distress. Patient is tearful Skin: Warm, dry, no pallor noted. There is no rash noted. Head: Normocephalic, atraumatic Eye: Normal conjunctiva, no drainage Ears, Nose, Mouth, and Throat: oral mucosa is moist. Nares patent. Cardiovascular: Regular Rate and Rhythm, mildly tachycardic upon arrival Respiratory: Patient is in no distress, no accessory muscle use, lungs are clear to auscultation, no wheezing, rales or rhonchi Back: non-tender GI: Soft and nontender Musculoskeletal: The patient has no evidence of calf tenderness, no pitting edema, symmetrical pulses noted bilaterally Neurological: A&O, normal speech Psychiatric: Cooperative Constitutional Vital Signs, click to edit/add: Last Vital Signs Temp 98.6 F 09/04/24 19:53 Pulse 84 09/04/24 22:10 Resp 19 09/04/24 22:10 BP 118/79 09/04/24 22:00 Pulse Ox 96 09/04/24 22:00 O2 Del Method Room Air 09/04/24 19:53 Course Vital Signs Vital signs: Vital Signs Temperature 98.6 F 09/04/24 19:53 Pulse Rate 112 H 09/04/24 19:53 Respiratory Rate 18 09/04/24 19:53 Blood Pressure 153/94 H 09/04/24 19:53 Pulse Oximetry 99 09/04/24 19:53 Oxygen Delivery Method Room Air 09/04/24 19:53 Temperature 98.6 F 09/04/24 19:53 Pulse Rate 84 09/04/24 22:10 Respiratory Rate 19 09/04/24 22:10 Blood Pressure 118/79 09/04/24 22:00 Pulse Oximetry 96 09/04/24 22:00 Oxygen Delivery Method Room Air 09/04/24 19:53 MDM - Anxiety MDM Narrative Medical decision making narrative: The patient's laboratory analysis is negative. She was given 0.5 mg of IV Ativan twice and feels much improved. She is discharged home with a prescription for fourteen 0.5 mg Xanax tablets. Findings are discussed thoroughly with the patient and her mother and follow-up is being arranged. Differential Diagnosis Differential diagnosis: Likely panic disorder and acute anxiety Lab Data Attestation: I reviewed the patient's lab results. Labs: Lab Results 09/04/24 Range/Units 20:25 WBC 6.9 (4.0-11.0) 10^3/uL RBC 5.24 (4.20-5.40) 10^6/uL Hgb 14.4 (12.0-16.0) g/dL Hct 43.9 (36.0-48.0) % MCV 83.8 (81.0-99.0) fL MCH 27.5 (26.7-34.0) pg MCHC 32.8 (29.9-35.2) g/dL RDW 12.1 (11.0-15.0) % Plt Count 328 (150-450) 10^3/uL MPV 10.3 (9.5-13.5) fL Neut % (Auto) 78.5 H (43.0-75.0) % Lymph % (Auto) 15.5 L (20.5-60.0) % [place] % (Auto) 4.5 (1.7-12.0) % Eos % (Auto) 0.6 L (0.9-7.0) % Baso % (Auto) 0.6 (0.2-2.0) % Neut # (Auto) 5.4 (1.4-6.5) 10^3/uL Lymph # (Auto) 1.1 L (1.2-3.8) 10^3/uL [place] # (Auto) 0.3 (0.3-0.8) 10^3/uL Eos # (Auto) 0.0 (0.0-0.7) 10^3/uL Baso # (Auto) 0.0 (0.0-0.1) 10^3/uL Abs Immat Gran (auto) 0.02 (0.00-0.03) 10^3/uL Imm/Tot Granulo (auto) 0.3 (0.0-0.5) % Sodium 142 (136-145) mmol/L Potassium 3.7 (3.5-5.1) mmol/L Chloride 103 (98-107) mmol/L Carbon Dioxide 28.1 (21.0-32.0) mmol/L Anion Gap 14.6 BUN 7.0 (7.0-18.0) mg/dL Creatinine 0.93 (0.55-1.02) mg/dL Est GFR ( Amer) >60 (>=60 mL/min/1.73m^2) Est GFR (Non-Af Amer) >60 (>=60 mL/min/1.73m^2) BUN/Creatinine Ratio 7.5 Glucose 110 H (74-106) mg/dL Calcium 9.1 (8.5-10.1) mg/dL Serum HCG, Qual Negative (NEGATIVE) ECG Data Attestation: I personally reviewed and interpreted this ECG as follows: (EKG on my interpretation shows sinus rhythm with rate of 95 and no acute change) Discharge Plan Discharge Chief Complaint: Anxiety Clinical Impression: Acute anxiety Patient Disposition: Home, Self-Care Time of Disposition Decision: 22:18 Condition: Good Mode of Transportation: Private Vehicle Prescriptions / Home Meds: New alprazolam [Xanax] 0.5 mg tablet 0.25 mg PO BID PRN (Reason: anxiety) 7 Days Qty: 14 0RF No Action norgestimate-ethinyl estradiol [Akiko] 0.25-35 mg-mcg tablet 1 tab PO DAILY ketorolac 10 mg tablet 10 mg PO TID 5 Days Qty: 15 0RF oxycodone-acetaminophen [Percocet] 5-325 mg tablet 1 tab PO Q6H PRN (Reason: pain) Qty: 20 0RF fluoxetine 10 mg capsule Print Language: Djiboutian Instructions: Anxiety (ED) Referrals: Ilia Amato DO [Primary Care Provider] - 1 week
[2024-09-04] MEDS: LORAZEPAM 2 MG/ML VIAL 0.5 MG IV ×2 (20:45→21:38)
[2024-09-04 20:46] LABS: Basophils Percent Auto 0.6 % (0.2-2.0); Eosinophils Percent Auto 0.6 % (0.9-7.0); Hematocrit 43.9 % (36.0-48.0); Hemoglobin 14.4 g/dL (12.0-16.0); Immature Granulocytes Abs Auto 0.02 10^3/uL (0.00-0.03); Immature Granulocytes Pct Auto 0.3 % (0.0-0.5); Lymphocytes Absolute Auto 1.1 10^3/uL (1.2-3.8); Lymphocytes Percent Auto 15.5 % (20.5-60.0); Mean Corpuscular HGB Conc 32.8 g/dL (29.9-35.2); Mean Corpuscular Hemoglobin 27.5 pg (26.7-34.0); Mean Corpuscular Volume 83.8 fL (81.0-99.0); Mean Platelet Volume 10.3 fL (9.5-13.5); Monocytes Absolute Auto 0.3 10^3/uL (0.3-0.8); Monocytes Percent Auto 4.5 % (1.7-12.0); Neutrophils Absolute Auto 5.4 10^3/uL (1.4-6.5); Neutrophils Percent Auto 78.5 % (43.0-75.0); Platelet Count 328 10^3/uL (150-450); Red Blood Count 5.24 10^6/uL (4.20-5.40); Red Cell Distribution Width 12.1 % (11.0-15.0); White Blood Count 6.9 10^3/uL (4.0-11.0)
[2024-09-04 20:55] LABS: Anion Gap 14.6; BUN Creatinine Ratio 7.5; Calcium 9.1 mg/dL (8.5-10.1); Carbon Dioxide 28.1 mmol/L (21.0-32.0); Chloride 103 mmol/L (98-107); Estimated GFR (African America >60 (>=60 mL/min/1.73m^2); Estimated GFR (Non-African Ame >60 (>=60 mL/min/1.73m^2); Glucose 110 mg/dL (74-106); Potassium 3.7 mmol/L (3.5-5.1); Sodium 142 mmol/L (136-145)
[2024-09-04 20:58] LABS: HCG Qualitative NEGATIVE (NEGATIVE); Internal Control Within Normal Limits
--- NOTE | 2024-09-04 22:31 | PC.NURSE ---
i gave this patient verbal and written discharge orders along with 1 e-script and this patient voices no question about these. at time of discharge orders this patient nor her mother voices no question and this patient show so signs of distress
== END 2024-09-04 22:33 | disposition home or self-care (01) ==
PROVIDERS: Emergency Provider Emergency Medicine; PCP Internal Medicine
DX: F41.9 Anxiety disorder, unspecified (principal)
CPT/HCPCS: 36415; 80048; 84703; 85025; 93005; 96374; 96376; 99285; J2060